=== PATIENT | female | born 1990 | race Caucasian/White ===

== ENCOUNTER 2017-09-22 15:00 | Emergency (ER) | payer OTHER ==
[2017-09-22 15:07] VITALS: BP 115/75
[2017-09-22] MEDS ORDERED: SODIUM CHLORIDE 0.9% 1,000 ML IV ONE (15:16)
[2017-09-22] MEDS ORDERED: METOCLOPRAMIDE 10 MG/2 ML VIAL IVP STA (15:16)
--- NOTE | 2017-09-22 15:17 | ED Physician Documentation ---
PD HPI ABD PAIN - Stated complaint Stated Complaint: VOMITTING/8 WKS - Chief complaint Chief Complaint: Abd Pain - History obtained from History obtained from: Patient - History of Present Illness Timing - onset: Other (27-year-old G1 at 8 weeks gestation and has been having trouble with vomiting for the last week or so, worse over the last day. There is no associated abdominal pain. She is constipated which has been resistant to milk of magnesia and stool softeners. She has also been taking Zofran which was working but is now no longer effective. Denies cramping or bleeding.) Review of Systems Constitutional: denies: Fever, Chills GI: reports: Nausea, Vomiting, Constipation. denies: Abdominal Pain, Diarrhea : denies: Dysuria, Frequency PD PAST MEDICAL HISTORY - Present Medications Home Medications: Ambulatory Orders Medication Instructions Recorded Confirmed Magnesium Citrate 296 ml PO ONCE #1 bot 09/22/17 Metoclopramide [Reglan] 10 mg PO Q6H PRN #20 tablet 09/22/17 Ondansetron Odt [Zofran] 4 mg TL Q6H PRN 09/22/17 09/22/17 Pnv No.122/Iron/Folic Acid 1 tab PO DAILY 09/22/17 09/22/17 [ Multi Tablet] Polyethylene Glycol 3350 [Miralax] 17 gm PO DAILY PRN #1 bottle 09/22/17 - Allergies Allergies/Adverse Reactions: Allergies Allergy/AdvReac Type Severity Reaction Status Date / Time Penicillins Allergy Unknown Verified 09/22/17 15:08 PD ED PE NORMAL - Vitals Vital signs reviewed: Yes - General General: Alert and oriented X 3, No acute distress - Cardiac Cardiac: RRR, No murmur - Respiratory Respiratory: No respiratory distress, Clear bilaterally - Abdomen Abdomen: Soft, Non tender - Female Female : Other (Bedside ultrasound demonstrates single live intrauterine with a heart rate of 146) - Neuro Neuro: Alert and oriented X 3, Normal speech - Psych Psych: Normal mood, Normal affect Results - Vitals Vitals: Vital Signs - 24 hr 09/22/17 15:04 Temperature 36.0 C L Heart Rate 84 Respiratory 16 Rate Blood Pressure 115/75 O2 Saturation 100 - Labs Labs: Laboratory Tests 09/22/17 15:36 Sodium 135 Potassium 3.8 Chloride 100 L Carbon Dioxide 24 Anion Gap 11.0 BUN 10 Creatinine 0.8 Estimated GFR (MDRD) 85 L Glucose 97 Calcium 9.3 Total Bilirubin 0.6 AST 15 ALT 12 Alkaline Phosphatase 44 Total Protein 7.7 Albumin 4.1 Globulin 3.6 Albumin/Globulin Ratio 1.1 Lipase 36 PD MEDICAL DECISION MAKING - ED course ED course: 27-year-old woman G1 presents with hyperemesis gravidarum that has been resistant to Zofran. After the administration of IV fluids and Reglan she felt much better and passed an oral challenge. The patient and family were counseled as to the diagnosis and need for follow- up. I counseled the patient with regard to signs and symptoms that would necessitate an urgent reevaluation in the emergency department. They understand they are welcome to return at any time if worse or if not improving as expected. This document was made in part using voice recognition software. While efforts are made to proofread this documents, sound alike and grammatical errors may occur. Departure - Departure Disposition: 01 Home, Self Care Clinical Impression: Hyperemesis gravidarum Condition: Good Record reviewed to determine appropriate education?: Yes Instructions: ED Preg Morning Sickness Prescriptions: Magnesium Citrate 296 ml PO ONCE #1 bot Metoclopramide [Reglan] 10 mg PO Q6H PRN #20 tablet PRN Reason: Nausea / Vomiting Polyethylene Glycol 3350 [Miralax] 17 gm PO DAILY PRN #1 bottle PRN Reason: Constipation Comments: Call your doctor to arrange a follow-up appointment, make the next available appointment. In the interim, return anytime if worse or if new symptoms develop.
[2017-09-22] MEDS ORDERED: METOCLOPRAMIDE 10 MG/2 ML VIAL ONE (15:54)
[2017-09-22 15:57] LABS: ALBUMIN/GLOBULIN RATIO 1.1 (1.0-2.2); BILIRUBIN,TOTAL 0.6 mg/dL (0.2-1.0); CALCIUM 9.3 mg/dL (8.5-10.3); CREATININE 0.8 mg/dL (0.4-1.0); POTASSIUM 3.8 mmol/L (3.5-5.0); TOTAL PROTEIN 7.7 g/dL (6.7-8.2)
== END 2017-09-22 16:49 | disposition home or self-care (01) ==
LOC: ED 15:00
DX: O21.0 Mild hyperemesis gravidarum (principal); Z3A.08 8 weeks gestation of pregnancy
CPT/HCPCS: 36415; 80053; 83690; 96374; 99283; 99284

== ENCOUNTER 2017-10-05 16:17 | Outpatient (CLI) | payer OTHER | END 2017-10-05 16:18 | disposition home or self-care (01) | LOC: LAB 16:17 | PROVIDERS: ATTEND Registered Nurse | DX: Z36.9 Encounter for antenatal screening, unspecified (principal) | CPT/HCPCS: 36415; 81001; 81599; 85025; 86762; 86850; 86900; 86901; 87340; 87389 ==

== ENCOUNTER 2017-10-06 08:00 | Outpatient (CLI) | payer OTHER | END 2017-10-06 08:01 | disposition home or self-care (01) | LOC: LAB.R 08:00 | PROVIDERS: ATTEND Registered Nurse | DX: Z36.9 Encounter for antenatal screening, unspecified (principal) | CPT/HCPCS: 87491; 87591 ==

== ENCOUNTER 2017-10-16 14:25 | Outpatient (CLI) | payer OTHER ==
[2017-10-16 15:42] LABS: BASOPHILS # (AUTO) 0.1 10^3/uL (0.0-0.1); BASOPHILS % (AUTO) 0.9 %; EOSINOPHILS # (AUTO) 0.1 10^3/uL (0.0-0.7); EOSINOPHILS % (AUTO) 0.7 %; HGB - HEMOGLOBIN 12.5 g/dL (12.0-16.0); MEAN CORPUSCULAR HEMOGLOBIN 31.4 pg (27.0-31.0); MEAN CORPUSCULAR HGB CONC 35.1 g/dL (32.0-36.0); MEAN CORPUSCULAR VOLUME 89.3 fL (81.0-99.0); MEAN PLATELET VOLUME 8.6 fL (7.9-10.8); MONOCYTES # (AUTO) 0.7 10^3/uL (0.0-1.0); MONOCYTES % (AUTO) 8.3 %; NEUTROPHILS # (AUTO) 4.9 10^3/uL (1.5-6.6); NEUTROPHILS % (AUTO) 56.1 %; PLT - PLATELET COUNT 254 10^3/uL (130-450); RED BLOOD COUNT 3.99 10^6/uL (4.20-5.40); RED CELL DISTRIBUTION WIDTH 13.1 % (12.0-15.0); WHITE BLOOD COUNT 8.7 x10^3/uL (4.8-10.8)
[2017-10-16 15:50] LABS: BILIRUBIN,URINE NEGATIVE (NEGATIVE); GLUCOSE, URINE (UA) NEGATIVE (NEGATIVE); KETONES,URINE (UA) NEGATIVE (NEGATIVE); LEUKOCYTE ESTERASE, URINE NEGATIVE (NEGATIVE); NITRITE,URINE NEGATIVE (NEGATIVE); OCCULT BLOOD,URINE NEGATIVE (NEGATIVE); PROTEIN,URINE NEGATIVE (NEGATIVE); UROBILINOGEN,URINE 0.2 (NORMAL) E.U./dL (NORMAL)
[2017-10-16 16:14] LABS: CLARITY,URINE CLEAR (CLEAR)
[2017-10-16 17:00] LABS: BACTERIA,URINE None Seen /HPF (None Seen); RBC,URINE 0-5 /HPF (0-5); SQUAMOUS EPITHELIAL CELL,UR MOD Squamous (<= Few)
[2017-10-17 11:51] LABS: HIV AG/AB 4TH GEN NON-REACTIVE (NON-REACTIVE)
[2017-10-17 13:22] LABS: HEPATITIS B SURFACE ANTIGEN NON-REACTIVE (NON-REACTIVE)
== END 2017-10-16 14:26 | disposition home or self-care (01) ==
LOC: LAB 14:25
PROVIDERS: ATTEND Registered Nurse
DX: Z36.9 Encounter for antenatal screening, unspecified (principal)
CPT/HCPCS: 36415; 81001; 81599; 85025; 86592; 86762; 86850; 86900; 86901; 87340; 87389

== ENCOUNTER 2018-01-01 12:40 | Outpatient (CLI) | payer OTHER ==
--- NOTE | 2018-01-01 16:32 | Ultrasound Report ---
OB ULTRASOUND: 01/01/2018 CLINICAL INDICATION: anatomy. TECHNIQUE: Real-time scanning was performed with international representative static images obtained. LAST MENSTRUAL PERIOD 08/03/2017 Clinical Age 21 weeks 4 days US Age 22 weeks 1 day EFW Hadlock 500 grams EFW% Hadlock 83% Heart Rate 150 EDC 05/10/2018 US EDC 05/06/2018 BPD Hadlock 21 weeks 6 days; Mean mm 52 HC Hadlock 21 weeks 6 days; Mean mm 197 AC Hadlock 22 weeks 6 days; Mean mm 180 FL Hadlock 22 weeks 0 days; Mean mm 37 Presentation breech Placental Location posterior R wrap Cervical Length -- Amniotic Fluid 14.9 cm; subjectively normal; MVP 5.1 cm FINDINGS There is a single viable intrauterine gestation, in breech presentation. heart rate is 150 BPM. The placenta is posterior to right wrap, without evidence of previa. Amniotic fluid volume is subjectively normal, with a deepest pocket of 5.1 cm. By size, the fetus measures 22 weeks 1 day (21 weeks 4 days by LMP). The following anatomic structures were visualized and appear normal: The intracranial contents, including the ventricles and posterior fossa; the lips and orbits; the spine; the heart, including 4 chamber view and outflow tracts, and diaphragm; the abdominal contents, including the stomach, the bilateral kidneys, and urinary bladder, as well as a normal 3 vessel cord insertion; 4 limbs. No free fluid or adnexal lesion is appreciated. IMPRESSION: SINGLE VIABLE INTRAUTERINE GESTATION, WITH SIZE IN KEEPING WITH LMP DATING. NORMAL ANATOMIC SURVEY. TD: 01/01/2018 16:14 [facility]
== END 2018-01-01 12:41 | disposition home or self-care (01) ==
LOC: DI 12:40
PROVIDERS: ATTEND Registered Nurse
DX: Z36.9 Encounter for antenatal screening, unspecified (principal)
CPT/HCPCS: 76811

== ENCOUNTER 2018-01-29 10:14 | Outpatient (CLI) | payer OTHER ==
[2018-01-29 11:51] LABS: HGB - HEMOGLOBIN 11.9 g/dL (12.0-16.0); MEAN CORPUSCULAR HEMOGLOBIN 31.3 pg (27.0-31.0); MEAN CORPUSCULAR HGB CONC 34.5 g/dL (32.0-36.0); MEAN CORPUSCULAR VOLUME 90.7 fL (81.0-99.0); MEAN PLATELET VOLUME 8.6 fL (7.9-10.8); RED BLOOD COUNT 3.8 10^6/uL (4.20-5.40); RED CELL DISTRIBUTION WIDTH 13.7 % (12.0-15.0); WHITE BLOOD COUNT 10.5 x10^3/uL (4.8-10.8)
== END 2018-01-29 10:15 | disposition home or self-care (01) ==
LOC: LAB 10:14
PROVIDERS: ATTEND Registered Nurse
DX: Z34.82 Encounter for supervision of other normal pregnancy, second trimester (principal)
CPT/HCPCS: 36415; 82950; 86850

== ENCOUNTER 2018-03-26 09:38 | Outpatient (CLI) | payer OTHER ==
--- NOTE | 2018-03-30 15:04 | Ultrasound Report ---
OB FOLLOWUP: 03/26/2018 CLINICAL INDICATION: Size date discrepancy. COMPARISON: 01/01/2018 TECHNIQUE: Real-time scanning was performed with career representative static images obtained. LAST MENSTRUAL PERIOD: 08/03/2017 Clinical Age: 33 weeks 4 days US Age: 36 weeks 2 days EFW Hadlock: 2824 grams EFW% Hadlock: 96% Heart Rate: 137 bpm EDC: 05/10/2018 US EDC: 04/21/2018 BPD Hadlock: 36 weeks 4 days; Mean mm 90 HC Hadlock: 37 weeks 2 days; Mean mm 328 AC Hadlock: 35 weeks 5 days; Mean mm 318 FL Hadlock: 35 weeks 5 days; Mean mm 69.7 Presentation: cephalic Placental Location: posterior w/ fundal wrap to anterior Cervical Length: 3.7 cm Amniotic Fluid: FARHAT 20. cm; MVP 7.0 cm FINDINGS There is a single viable intrauterine gestation, in cephalic presentation. heart rate is 137 BPM. The placenta is fundal, without evidence of previa. Amniotic fluid volume is normal, with an FARHAT of 20.6. By size, the fetus measures 36 weeks 2 days (33 weeks 4 days by LMP dating). Estimated weight by Hadlock method is 2824 grams, 96th percentile. No free fluid or adnexal lesion is appreciated. IMPRESSION: SINGLE VIABLE INTRAUTERINE GESTATION, MEASURING 2 WEEKS 5 DAYS LARGER THAN EXPECTED BY LMP DATING. ESTIMATED WEIGHT BY HADLOCK METHOD IS 2824 GRAMS, 96TH PERCENTILE FOR LMP DATING. Results called to Gloria Tillman CNM, on 03/26/2018 at 12 noon. TD: 03/26/2018 12:08 CHIKI
== END 2018-03-26 09:39 | disposition home or self-care (01) ==
LOC: DI 09:38
PROVIDERS: ATTEND Registered Nurse
DX: O26.843 Uterine size-date discrepancy, third trimester (principal); Z3A.33 33 weeks gestation of pregnancy
CPT/HCPCS: 76816

== ENCOUNTER 2018-04-07 21:05 | Outpatient (CLI) | payer OTHER ==
--- NOTE | 2018-04-08 00:03 | Ultrasound Preliminary Report ---
Exam: US OB F/U OR REPEAT IMPRESSION: 1. Su live intrauterine in cephalic presentation. 2. Established EGA 35 weeks 2 days with ROSALIND 05/10/2018 based on source of assigned dating. EGA 36 wee ks 2 days with ROSALIND 05/03/2018 based on the current ultrasound. Growth appears within normal limits wit h the composite gestational age measured on today's ultrasound only 1 week greater than established E GA. See above. 3. Amniotic fluid: FARHAT measures 25.2 cm, greater than the 95th percentile as seen with polyhydramnios . MVP 8 cm. 4. Estimated Weight: 2923 gm, computer results show this to be at the 25.2 percentile, but I qu estion this since the composite gestational age is greater than the estimated gestational age based o n established dates. Recommend follow-up of this on the ultrasound machine in the morning. 5. This exam was performed after-hours and no radiologist was present. The measurements are discordan t with the measurements that were obtained on the most recent ultrasound. Recommend a repeat OB follo w-up ultrasound when the radiologist is present tomorrow to repeat the measurements. 6. This was requested to be a call report, however the phone number given is a non-functioning number , and we were unable to reach the clinical service at the time of dictation. HOSSEIN The call report notification system was initiated by Dr. Fanny Cotton at 23:50 hrs on 04/07/18. SITE ID: [id number]
--- NOTE | 2018-04-08 00:09 | Ultrasound Report ---
EXAM: OBSTETRICAL ULTRASOUND FOLLOW-UP EXAM DATE: 04/07/2018 09:21 PM. CLINICAL HISTORY: Encounter for screening for macrosomia. COMPARISON: OB ultrasound 03/26/2018. TECHNIQUE: Real-time sonographic evaluation of the fetus performed by the hearing care professional. Multiple repre sentative static images were saved for review. DATING: Established EGA 35 weeks 2 days with ROSALIND 05/10/2018 based on source of assigned dating. EGA 38 weeks 0 days with ROSALIND 04/21/2018 based on prior ultrasound from 03/26/2018. EGA 36 weeks 2 days with ROSALIND 05/03/2018 based on the current ultrasound. GENERAL EVALUATION Su . Cardiac activity: 118 bpm. movement: Visualized. Presentation: Cephalic. Placenta: Posterior position. . Amniotic fluid: FARHAT measures 25.2 cm, greater than the 95th percentile as seen with polyhydramnios. M SPORTS ADMINISTRATOR 8 cm. BIOMETRY Bi-Parietal Diameter (BPD): 9 cm, 36 weeks 4 days Head Circumference (HC): 32.2 cm, 36 weeks 2 days Abdominal Circumference (AC): 32.7 cm, 36 weeks 4 days Femur Length (FL): 7 cm, 35 weeks 5 days Estimated Weight: 2923 gm, computer results show this to be at the 25.2 percentile, but I quest ion this since the composite gestational age is greater than the estimated gestational age based on e stablished dates. Recommend follow-up of this on the ultrasound machine in the morning. IMPRESSION: 1. Su live intrauterine in cephalic presentation. 2. Established EGA 35 weeks 2 days with ROSALIND 05/10/2018 based on source of assigned dating. EGA 36 wee ks 2 days with ROSALIND 05/03/2018 based on the current ultrasound. Growth appears within normal limits wit h the composite gestational age measured on today's ultrasound only 1 week greater than established E GA. See above. 3. Amniotic fluid: FARHAT measures 25.2 cm, greater than the 95th percentile as seen with polyhydramnios . MVP 8 cm. 4. Estimated Weight: 2923 gm, computer results show this to be at the 25.2 percentile, but I qu estion this since the composite gestational age is greater than the estimated gestational age based o n established dates. Recommend follow-up of this on the ultrasound machine in the morning. 5. This exam was performed after-hours and no radiologist was present. The measurements are discordan t with the measurements that were obtained on the most recent ultrasound. Recommend a repeat OB follo w-up ultrasound when the radiologist is present tomorrow to repeat the measurements. 6. This was requested to be a call report, however the phone number given is a non-functioning number , and we were unable to reach the clinical service at the time of dictation. HOSSEIN The call report notification system was initiated by Dr. Fanny Cotton at 23:50 hrs on 04/07/18. Referring Provider Line: [phone] SITE ID: [id number]
== END 2018-04-07 21:06 | disposition home or self-care (01) ==
LOC: DI 21:05
PROVIDERS: ATTEND Registered Nurse
DX: Z36.88 Encounter for antenatal screening for fetal macrosomia (principal)
CPT/HCPCS: 76816

== ENCOUNTER 2018-04-13 10:22 | Outpatient (CLI) | payer OTHER ==
--- NOTE | 2018-04-13 12:19 | Ultrasound Report ---
Procedure Date: 04/13/2018 Accession Number: [id number] / [id number] Procedure: US - OB F/U or Repeat CPT Code: FULL RESULT: EXAM: OB F/U or Repeat DATE: 04/13/2018 11:13 AM CLINICAL INDICATION: macrosomia COMPARISON: 04/07/2018, 03/26/2018, 01/01/2018 TECHNIQUE: Real-time scanning was performed with national sales representative static images obtained. LAST MENSTRUAL PERIOD: 08/03/2017 Clinical Age: 36 weeks 1 days US Age: 38 weeks 1 days EFW Hadlock: 3453 grams EFW % Hadlock: 89% Heart Rate: 144 bpm EDC: 05/10/2018 US EDC: 04/26/2018 BPD Hadlock: 37 weeks 0 days; Mean mm 91 HC Hadlock: 39 weeks 2 days; Mean mm 342 AC Hadlock: 38 weeks 3 days; Mean mm 346 FL Hadlock: 38 weeks 0 days; Mean mm 74 Presentation: Cephalic Placental Location: Posterior Cervical Length: 3.8 cm Amniotic Fluid: FARHAT 16.1 cm; MVP 6.9 cm FINDINGS: There is a single viable intrauterine gestation, in cephalic presentation. heart rate is 144 BPM. The placenta is posterior, without evidence of previa. Amniotic fluid volume is normal, with an FARHAT of 16.1. By size, the fetus measures 38 weeks 1 day, 3453 g by Hadlock method (89th percentile). IMPRESSION: Single viable intrauterine gestation, measuring 2 weeks ahead by size. Results called to Rudolph Tillman CNM, on 04/13/2018.
== END 2018-04-13 10:23 | disposition home or self-care (01) ==
LOC: DI 10:22
PROVIDERS: ATTEND Registered Nurse
DX: Z36.88 Encounter for antenatal screening for fetal macrosomia (principal); Z34.83 Encounter for supervision of other normal pregnancy, third trimester
CPT/HCPCS: 76816; 87081

== ENCOUNTER 2018-04-13 14:42 | Outpatient (CLI) | payer OTHER | END 2018-04-13 14:43 | disposition home or self-care (01) | LOC: LAB.R 14:42 | PROVIDERS: ATTEND Registered Nurse | DX: Z34.83 Encounter for supervision of other normal pregnancy, third trimester (principal) | CPT/HCPCS: 87081 ==

== ENCOUNTER 2018-04-21 16:01 | Outpatient (CLI) | payer OTHER ==
[2018-04-21 16:25] LABS: BASOPHILS % (AUTO) 0.4 %; EOSINOPHILS % (AUTO) 0.4 %; HGB - HEMOGLOBIN 11.1 g/dL (12.0-16.0); LYMPHOCYTES # (AUTO) 1.8 10^3/uL (1.5-3.5); LYMPHOCYTES % (AUTO) 22.7 %; MEAN CORPUSCULAR HEMOGLOBIN 30.4 pg (27.0-31.0); MEAN CORPUSCULAR HGB CONC 34.2 g/dL (32.0-36.0); MEAN PLATELET VOLUME 9.5 fL (7.9-10.8); MONOCYTES # (AUTO) 0.6 10^3/uL (0.0-1.0); MONOCYTES % (AUTO) 7.5 %; NEUTROPHILS # (AUTO) 5.5 10^3/uL (1.5-6.6); PLT - PLATELET COUNT 201 10^3/uL (130-450); RED BLOOD COUNT 3.66 10^6/uL (4.20-5.40); RED CELL DISTRIBUTION WIDTH 13.3 % (12.0-15.0)
[2018-04-21 16:35] LABS: GLUCOSE, URINE (UA) NEGATIVE (NEGATIVE); KETONES,URINE (UA) TRACE mg/dL (NEGATIVE); LEUKOCYTE ESTERASE, URINE NEGATIVE (NEGATIVE); NITRITE,URINE NEGATIVE (NEGATIVE); OCCULT BLOOD,URINE NEGATIVE (NEGATIVE); PROTEIN,URINE TRACE mg/dL (NEGATIVE); UROBILINOGEN,URINE 0.2 (NORMAL) E.U./dL (NORMAL)
[2018-04-21 16:38] LABS: CREATININE 0.7 mg/dL (0.4-1.0); URIC ACID 6.1 mg/dL (2.6-7.2)
[2018-04-21 16:42] LABS: BACTERIA,URINE Many /HPF (None Seen); BILIRUBIN,URINE NEGATIVE (NEGATIVE); CLARITY,URINE HAZY (CLEAR); ICTOTEST,URINE NEGATIVE; MUCUS,URINE Moderate Strands; RBC,URINE None Seen /HPF (0-5); SQUAMOUS EPITHELIAL CELL,UR MANY Squamous (<= Few)
[2018-04-21 16:48] LABS: HB2 TOTAL 11.6 g/dL; HEMOGLOBIN A1C 0.41 g/dL; HEMOGLOBIN A1C % 5.4 % (4.6-6.2)
== END 2018-04-21 16:02 | disposition home or self-care (01) ==
LOC: LAB 16:01
PROVIDERS: ATTEND Obstetrics & Gynecology
DX: R03.0 Elevated blood-pressure reading, without diagnosis of hypertension (principal)
CPT/HCPCS: 36415; 81001; 82565; 83036; 83615; 84450; 84550; 85025

== ENCOUNTER 2018-04-28 12:19 | Inpatient (IN) | payer OTHER ==
[2018-04-28 13:05] LABS: BASOPHILS % (AUTO) 0.4 %; EOSINOPHILS % (AUTO) 0.3 %; HGB - HEMOGLOBIN 11.5 g/dL (12.0-16.0); LYMPHOCYTES # (AUTO) 1.5 10^3/uL (1.5-3.5); LYMPHOCYTES % (AUTO) 14.9 %; MEAN CORPUSCULAR HEMOGLOBIN 30.1 pg (27.0-31.0); MEAN CORPUSCULAR HGB CONC 33.6 g/dL (32.0-36.0); MEAN CORPUSCULAR VOLUME 89.4 fL (81.0-99.0); MEAN PLATELET VOLUME 10.1 fL (7.9-10.8); MONOCYTES # (AUTO) 0.8 10^3/uL (0.0-1.0); MONOCYTES % (AUTO) 7.5 %; NEUTROPHILS # (AUTO) 7.8 10^3/uL (1.5-6.6); NEUTROPHILS % (AUTO) 76.9 %; PLT - PLATELET COUNT 213 10^3/uL (130-450); RED BLOOD COUNT 3.84 10^6/uL (4.20-5.40); RED CELL DISTRIBUTION WIDTH 13.6 % (12.0-15.0); WHITE BLOOD COUNT 10.2 x10^3/uL (4.8-10.8)
[2018-04-28 13:12] LABS: URIC ACID 6.6 mg/dL (2.6-7.2)
[2018-04-28 13:16] LABS: PROTEIN/CREATININE RATIO,URINE 0.1 (<=0.2)
[2018-04-28] MEDS: LACTATED RINGERS 1,000 ML IV SCH ×2 (14:38→23:41)
[2018-04-28] MEDS ORDERED: CITRIC ACID/SODIUM CITRATE 15 ML UDC PO ONE ×2 (14:42→14:46)
[2018-04-28] MEDS ORDERED: SODIUM CHLORIDE FLUSH 0.9% 10 ML SYRINGE IVP PRN (14:48)
[2018-04-28] MEDS ORDERED: ONDANSETRON 4 MG/2 ML VIAL IVP PRN (14:48)
[2018-04-28] MEDS ORDERED: LACTATED RINGERS 1,000 ML IV SCH (15:00)
[2018-04-28] MEDS ORDERED: CLINDAMYCIN 900 MG/50 ML 50 ML IV ONE (15:00)
--- NOTE | 2018-04-28 15:03 | OPERATIVE REPORT ---
Operative Report - General Admit Date: 04/28/18 Planned Procedure: Primary section Pre-Op Diagnosis: Gestational hypertension; 38-week 1 day gestation; macrosomic fetus Procedure Performed: Primary lower segment transverse section - Procedure Note Primary Surgeon: Martin Hallman MD Secondary Surgeon: Yuliet Avila, certified nurse record tester Anesthesia Technique: Spinal IV Fluids (mL): 1,000 Estimated Blood Loss (mL): 500 Urine Output (mL): 100 Drain/Tube Type: Other (Miles catheter) Complications: none - Other Other Information/Narrative: Living male ; weight XX; Apgars X/Y. Immediately post delivery we had a period of uterine atony that massage and Pitocin could not resolved. As a result one ampule of Hemabate was given. The Hemabate resolve the atony
[2018-04-28] MEDS ORDERED: LACTATED RINGERS 1,000 ML IV ONE ×2 (15:18→16:00)
[2018-04-28] MEDS ORDERED: CARBOPROST TROMETHAMINE 250 MCG/ML AMP IM ONE (16:40)
[2018-04-28] MEDS ORDERED: OXYTOCIN 10 UNIT/ML VIAL IV ONE (16:40)
[2018-04-28] MEDS ORDERED: MORPHINE PF 5 MG/10 ML AMP EP ONE (16:40)
--- NOTE | 2018-04-28 16:52 | HISTORY & PHYSICAL EXAMINATION ---
DATE OF SERVICE: 04/28/2018 Physician: Martin Hallman MD HISTORY OF PRESENT ILLNESS: The patient is a 28-year-old primigravida at 38 weeks and 1 day gestation who was noted to have elevated blood pressures in the office up to a peak of 150/110. She has a persistent headache, but has had migraine headaches in the past. She has no right upper quadrant tenderness or visual symptoms, but does note finger and pedal edema. Her fundal height is ahead of dates and recent ultrasound found the EFW at the 97th percentile and a normal FARHAT. Preeclampsia labs pending. The patient reports contractions beginning today, but they have since tapered off. She believes she lost her mucus plug, but no suspicion of ruptured membranes Todays office blood pressures were originally 148/94 with a repeat of 150/94 and a peak of 156/110. The patient had a prior counseling session with Dr. Pillai concerning macrosomia and she had elected for section next week. Basic labs: Blood type A positive, antibody screen negative, urine culture negative, RPR nonreactive, hepatitis B surface antigen negative. Glucose challenge test normal at 86. A 28-week hemoglobin 11.9. . PAST MEDICAL HISTORY: The patient denies cardiovascular disease, HTN or pulmonary disease. She did have skin cancer Excision. She has had difficulty with anxiety in the past as well as migrainous headaches. Migraines worsened with oral contraceptives, but have improved since . Skin cancer resection in 2013 and also patient has had problems with anemia in the past. PAST SURGICAL HISTORY: Resection of skin cancer. ALLERGIES: PENICILLIN CAUSES RASH AND BLISTERING. MEDICATIONS 1. vitamins. 2. Iron. FAMILY HISTORY: No genetically inheritable diseases noted or aneuploidy. Mother: Depression. Father: Hypertension. Stroke, multiple maternal relatives. SOCIAL HISTORY: , real estate inspector. No drug, tobacco or alcohol use. REVIEW OF SYSTEMS CONSTITUTIONAL: No recent fevers or illness. HEENT: Negative. LUNGS: Negative. CARDIAC: Negative. GASTROINTESTINAL: Negative. GENITOURINARY: Negative. BREASTS: Negative. MUSCULOSKELETAL: Positive edema. NEUROLOGIC: Grossly intact. Headache today PSYCHOLOGIC: Alert, appropriate, cooperative. PHYSICAL EXAMINATION VITAL SIGNS: Blood pressure 146/93. HEENT: Supple neck. Moist mucous membranes. No thyromegaly. LUNGS: Clear to all lobes. CARDIAC: Regular, no significant murmur or gallop. ABDOMEN: Nondistended. No organomegaly or upper quadrant tenderness. UTERUS: Estimate 9-pound fetus in a vertex presentation. No contractions felt. Normal resting tone. PELVIC: Deferred. EXTREMITIES: Finger edema, as well as pedal edema; moves all 4 extremities well. NEUROLOGIC: Grossly intact. Patellar reflex is brisk. PSYCHOLOGIC: In good mood, appears happy. ASSESSMENT: The patient is a 28-year-old primigravida at term, 38 weeks and 1 day by reliable dating criteria. She is noted to have significant hypertension and headaches with mild edema, but no right upper quadrant tenderness. She fits the criteria for gestational hypertension, w severe features. Current recommendations for a 38-week gestation with preeclampsia or gestational hypertension is delivery. The patient has a known large fetus (96th percentile) and desires delivery. delivery in addition to patient's preferences will expedite delivery and abort further progression of preeclampsia. PLAN: Patient has had only clear fluids at lunch. She is an appropriate candidate for section this afternoon. Dr. Beatty of anesthesia has already evaluated her and believes the same. Informed consent was given for a section including the mechanics, the possibility of blood loss, transfusion, and infection. Patient is allergic to penicillin and so we will use Cleocin for prophylaxis. Plan section at 1500 or 1530H. TD: 04/28/2018 14:54 CHIKI
[2018-04-28] MEDS ORDERED: ACETAMINOPHEN 1,000 MG/100 ML 100 ML IV ONE (17:19)
[2018-04-28] MEDS ORDERED: KETOROLAC 30 MG/ML VIAL ONE (17:30)
[2018-04-28] MEDS ORDERED: OXYTOCIN/SODIUM CHLORIDE 500 ML IV ONE (18:33)
[2018-04-28] MEDS: SODIUM CHLORIDE FLUSH 0.9% 10 ML SYRINGE IVP SCH (19:45)
[2018-04-28] MEDS ORDERED: SCOPOLAMINE PATCH TOP SCH (22:00)
[2018-04-28] MEDS: DOCUSATE SODIUM 100 MG CAPSULE PO SCH (22:06)
[2018-04-28] MEDS: ONDANSETRON 4 MG/2 ML VIAL IVP PRN (22:08)
--- NOTE | 2018-04-28 22:26 | OPERATIVE REPORT ---
DATE OF SERVICE: 04/28/2018 Physician: Martin Hallman MD PREOPERATIVE DIAGNOSIS: Gestational hypertension with severe features; 38-week 1-day gestation, macrosomic fetus. POST-DELIVERY DIAGNOSES 1. Gestational hypertension with severe features; 38-week 1-day gestation, macrosomic fetus. 2. Nuchal cord x2. 3. Uterine Atony PROCEDURE: Primary lower segment transverse section. SURGEON: Martin Hallman MD, FACOG, FICS NETWORK SUPPORT MANAGER: Yuliet Mcgee, certified nurse barrel builder. ANESTHESIA: Lobo Beatty MD MEN'S BASKETBALL COACH: Lluvia Ramos MD (Pediatrics) ANESTHESIA TYPE: Spinal. COMPLICATIONS: None. ESTIMATED BLOOD LOSS: 500. IV FLUIDS: 1000. URINE OUTPUT: 100 mL, clear. DRAINS: Miles catheter functioning. FINDINGS: Surgery start time 1553. At 1556, a living male was born weighing 8 lbs 10.1 oz and scoring Apgars of 9/9. There was no obvious trauma or congenital anomalies. Reference Dr. Ramos's notes. The uterus was normal without any myometrial findings or intracavitary defects. The tubes were open and fluffy. Both ovaries appeared to be normal. TECHNIQUE: Prior to the surgery, I had a conference with mother and father outlining the mechanics, the indications, and risks/benefits. Informed consent paperwork was signed. The patient was brought to the operating room, placed on the table in the sitting position. Spinal anesthetic was uneventfully instilled. The patient was moved to supine. She was prepped and draped in a customary sterile fashion. A timeout briefing was done per protocol. After ensuring anesthesia was good through level T10, surgery began. A Pfannenstiel incision was used to uneventfully open the abdominal wall. Bladder flap was developed with Metzenbaum scissors. A lower segment transverse hysterotomy was accomplished with a scalpel. On entry to the amniotic cavity, clear nonfoul fluid was noted. The wound was extended with gentle finger traction. Cleaner And Polisher secured the head with his right hand and guided it through the hysterotomy wound. Filter Worker provided fundal pressure to propel the fetus through the laparotomy wound uneventfully. Shoulders were delivered without difficulty. It was noted to be a large fetus. Cord was doubly clamped and transected. Cord blood was sent to pathology with a cord segment placed in reserve. Cord segment did not need to be sent. The uterus was exteriorized. Placenta was removed intact with gentle uterine massage. Hysterotomy wound was closed in 2 layers, first with an interlock stitch of #0 Vicryl. This was followed by an imbricating layer of #0 Vicryl sewn in a cardinal fashion. The abdominal cavity was doubly lavaged with warm normal saline and all operative sites were inspected. After ensuring there was no postoperative bleeding, the uterus was placed back into the uterine cavity. Pelvic peritoneum was closed with a running stitch of 2-0 Vicryl. Fascia was closed with a running stitch of 0 Vicryl. Subcutaneous tissue was reapproximated with multiple interrupted stitches of 2-0 chromic. Skin was closed with a running subcuticular stitch of 4-0 Monocryl. Additional subcuticular stitches of 4-0 Monocryl were placed to reinforce the wound. Wound VAC was uneventfully applied and observed to function normally. At the end of the case, all sponge, needle and instrument counts were confirmed as correct. DISPOSITION: The patient was taken to the labor and delivery suites for recovery. MEDICATIONS 1. Cleocin 900 mg IV piggyback prophylaxis. 2. Hemabate 15 mcg IM. TD: 04/28/2018 17:21 [facility]
[2018-04-29] MEDS: diphenhydrAMINE 25 MG CAPSULE PO PRN ×3 (00:16→22:50)
[2018-04-29] MEDS: ACETAMINOPHEN 500 MG TABLET PO SCH ×5 (04:06→23:20)
[2018-04-29] MEDS: oxyCODONE 5 MG TABLET PO PRN ×4 (04:06→22:08)
[2018-04-29] MEDS: IBUPROFEN 600 MG TABLET PO SCH ×5 (04:07→22:08)
[2018-04-29] MEDS: SODIUM CHLORIDE FLUSH 0.9% 10 ML SYRINGE IVP SCH ×3 (04:13→20:58)
[2018-04-29] MEDS: ONDANSETRON 4 MG/2 ML VIAL IVP PRN ×3 (05:48→14:57)
[2018-04-29 05:58] LABS: BASOPHILS % (AUTO) 0.1 %; LYMPHOCYTES % (AUTO) 7.1 %; MEAN CORPUSCULAR HEMOGLOBIN 29.8 pg (27.0-31.0); MEAN CORPUSCULAR HGB CONC 33.3 g/dL (32.0-36.0); MEAN CORPUSCULAR VOLUME 89.3 fL (81.0-99.0); MEAN PLATELET VOLUME 10.3 fL (7.9-10.8); MONOCYTES # (AUTO) 0.5 10^3/uL (0.0-1.0); MONOCYTES % (AUTO) 3.2 %; NEUTROPHILS # (AUTO) 12.8 10^3/uL (1.5-6.6); NEUTROPHILS % (AUTO) 89.6 %; PLT - PLATELET COUNT 184 10^3/uL (130-450); RED BLOOD COUNT 3.36 10^6/uL (4.20-5.40); RED CELL DISTRIBUTION WIDTH 13.2 % (12.0-15.0); WHITE BLOOD COUNT 14.3 x10^3/uL (4.8-10.8)
--- NOTE | 2018-04-29 09:01 | PROVIDER PROGRESS NOTE ---
Subjective - General Admit Date: 04/28/18 Procedure Date: 04/28/18 Post Op Days: 1 Procedure Performed: Primary lower segment transverse section - Review of Systems Wound/Incisions: positive: Other (Wound VAC in place and functional) Drain Type: Miles General: positive: No symptoms HEENT: positive: No symptoms Pulmonary: positive: No symptoms Cardiovascular: positive: No symptoms Gastrointestinal: positive: Nausea, Vomiting (Patient had multiple bouts of emesis last night that were triggered when she sat up. She did not have any headache associated with changing position. Since the scopolamine patch she has had much less nausea and vomiting) Genitourinary: positive: No symptoms Musculoskeletal: positive: No symptoms Skin: positive: No symptoms Psychiatric: positive: No symptoms Objective - Patient Data Vital Signs: Vital Signs x48h Temp Pulse Resp BP Pulse Ox 04/29/18 07:55 98.5 F 78 16 128/74 98 04/29/18 04:03 208.9 F H 80 16 126/75 04/29/18 02:00 207.7 F H 82 16 138/90 H Weight: Weight 04/27/18 04/28/18 04/29/18 23:59 23:59 23:59 Weight (kg) 119.295 kg Intake & Output: Intake and Output Totals x24h 04/27/18 04/28/18 04/29/18 23:59 23:59 23:59 Intake Total 1000 1000 Output Total 1525 550 Balance -525 450 - Lab Results Lab Results: 04/29/18 05:10 Other Lab Results: Lab Results x24hrs 04/29/18 04/28/18 04/28/18 Range/Units 05:10 12:50 12:50 WBC 14.3 H (4.8-10.8) x10^3/uL RBC 3.36 L (4.20-5.40) 10^6/uL Hgb 10.0 L (12.0-16.0) g/dL Hct 30.0 L (37.0-47.0) % MCV 89.3 (81.0-99.0) fL MCH 29.8 (27.0-31.0) pg MCHC 33.3 (32.0-36.0) g/dL RDW 13.2 (12.0-15.0) % Plt Count 184 (130-450) 10^3/uL MPV 10.3 (7.9-10.8) fL Neut # (Auto) 12.8 H (1.5-6.6) 10^3/uL Lymph # (Auto) 1.0 L (1.5-3.5) 10^3/uL Alger # (Auto) 0.5 (0.0-1.0) 10^3/uL Eos # (Auto) 0.0 (0.0-0.7) 10^3/uL Baso # (Auto) 0.0 (0.0-0.1) 10^3/uL Absolute Nucleated RBC 0.00 x10^3/uL Nucleated RBC % 0.0 /100WBC Uric Acid (2.6-7.2) mg/dL AST (10-42) IU/L Lactate Dehydrogenase (91-225) IU/L Urine Creatinine 94.0 mg/dL Ur Total Protein Timed 9 mg/dL Protein/Creatinin Ratio 0.1 (<=0.2) Blood Type A POSITIVE Antibody Screen NEGATIVE 04/28/18 04/28/18 04/28/18 Range/Units 12:50 12:50 12:50 WBC 10.2 (4.8-10.8) x10^3/uL RBC 3.84 L (4.20-5.40) 10^6/uL Hgb 11.5 L (12.0-16.0) g/dL Hct 34.3 L (37.0-47.0) % MCV 89.4 (81.0-99.0) fL MCH 30.1 (27.0-31.0) pg MCHC 33.6 (32.0-36.0) g/dL RDW 13.6 (12.0-15.0) % Plt Count 213 (130-450) 10^3/uL MPV 10.1 (7.9-10.8) fL Neut # (Auto) 7.8 H (1.5-6.6) 10^3/uL Lymph # (Auto) 1.5 (1.5-3.5) 10^3/uL Alger # (Auto) 0.8 (0.0-1.0) 10^3/uL Eos # (Auto) 0.0 (0.0-0.7) 10^3/uL Baso # (Auto) 0.0 (0.0-0.1) 10^3/uL Absolute Nucleated RBC 0.01 x10^3/uL Nucleated RBC % 0.1 /100WBC Uric Acid 6.6 (2.6-7.2) mg/dL AST 19 (10-42) IU/L Lactate Dehydrogenase 148 (91-225) IU/L Urine Creatinine mg/dL Ur Total Protein Timed mg/dL Protein/Creatinin Ratio (<=0.2) Blood Type Antibody Screen - Current Medications Current Medications: Current Medications Generic Name Dose Route Start Last Admin Trade Name Freq PRN Reason Stop Dose Admin Acetaminophen 1,000 mg 04/28/18 15:00 04/29/18 04:07 Tylenol PO Not Given Q8H RODNEY Diphenhydramine HCl 25 mg 04/28/18 14:48 04/29/18 00:16 Benadryl PO 25 mg Q6H PRN Administration ITCHING Docusate Sodium 100 mg 04/28/18 21:00 04/28/18 22:06 Colace 100mg Capsule PO Not Given BID RODNEY Lactated Ringer's 1,000 mls @ 150 mls/hr 04/28/18 14:00 04/29/18 04:13 Lr IV Infused .Q6H40M RODNEY Infusion Ibuprofen 600 mg 04/28/18 15:00 04/29/18 04:13 Motrin PO Not Given Q6H RODNEY Ondansetron HCl 4 mg 04/28/18 14:48 04/28/18 19:43 Zofran Inj IVP 4 mg Q4H PRN Administration Nausea / Vomiting Ondansetron HCl 8 mg 04/28/18 21:49 04/29/18 05:48 Zofran Inj IVP 8 mg Q4HR PRN Administration Nausea / Vomiting Oxycodone HCl 5 mg 04/28/18 14:48 04/29/18 04:06 Roxicodone PO 5 mg Q4HR PRN Administration PAIN Scopolamine HBr 1 patch 04/28/18 22:00 04/28/18 22:23 Transderm-Scop TOP 1 patch Q3D RODNEY Administration Sodium Chloride 10 ml 04/28/18 17:00 04/29/18 04:13 Normal Saline Flush 0.9% IVP Not Given 0100,0900,1700 [facility] Physical Exam - Physical Exam General: positive: No acute distress, Alert HEENT: positive: Moist mucous membranes Neck: positive: Supple w/out meningeal sx Cardiac: positive: Regular Rate, Regular Rhythm, Murmur Present (Innocent murmur of ) Resipratory: positive: Clear to ausultation nolan Abdomen: positive: Normal Bowel sounds Female : positive: Enlarged uterus (Uterus enlarged 17 week size nontender firm) Extremities: positive: Normal ROM, Non tender, Other (Mild pedal edema unchanged from yesterday; ring finger edema persists) Neurologic: positive: Alert and Oriented X 3, Normal Sensation, Normal Speech Assess/Plan - Additional Planning My Orders: My Active Orders 04/28/18 14:48 Activity - [RC] QSHIFT IO [RC] Q1HX12,Q4HR Initiate Line Care Protocol [RC] .protocol Notify Provider - Specific Ins [RC] PRN Notify Provider - VS Parameter [RC] .notify Checks - OB [RC] Q15MX8,Q1HRX2,Q4HRX6,QSHIFT Vital Signs - OB [RC] Q15MX8,Q1HRX2,Q4HRX6,QSHIFT Ondansetron Inj [Zofran Inj] 4 mg IVP Q4H PRN Sodium Chloride Flush 0.9% [Normal Saline Flush 0.9%] 10 ml IVP PRN PRN diphenhydrAMINE [Benadryl] 25 mg PO Q6H PRN oxyCODONE [Roxicodone] 5 mg PO Q4HR PRN Condition of Patient [OTHERS] Routine DVT Prophylaxis [OTHERS] Routine 04/28/18 14:49 Incentive Spirometry - RT [RC] 5XD 5XD SCDs [RC] QSHIFT Code Status [OTHERS] Routine 04/28/18 15:00 Acetaminophen [Tylenol] 1,000 mg PO Q8H Ibuprofen [Motrin] 600 mg PO Q6H 04/28/18 17:00 Sodium Chloride Flush 0.9% [Normal Saline Flush 0.9%] 10 ml IVP 0100,0900, 1700 04/28/18 21:00 Docusate Sodium 100Mg Capsule [Colace 100Mg Capsule] 100 mg PO BID 04/28/18 21:49 Ondansetron Inj [Zofran Inj] 8 mg IVP Q4HR PRN 04/28/18 22:00 Scopolamine Patch [Transderm-Scop] 1 patch TOP Q3D 04/29/18 02:48 Miles Discontinuation [RC] ONCE Assessment/Plan - Assessment/Plan Assessment: Patient recovering well from section. Her blood pressures have normalized since delivery. She has no symptoms of headache, epigastric tenderness, or visual symptoms changes. Labetalol and mag sulfate not required Plan: Continue supportive care. Discontinue Miles. Encourage patient to ambulate
[2018-04-29] MEDS: LACTATED RINGERS 1,000 ML IV SCH ×3 (09:20→20:57)
[2018-04-29] MEDS: DOCUSATE SODIUM 100 MG CAPSULE PO SCH ×2 (10:45→22:08)
[2018-04-30] MEDS: ACETAMINOPHEN 500 MG TABLET PO SCH ×2 (04:12→15:20)
[2018-04-30] MEDS: oxyCODONE 5 MG TABLET PO PRN ×3 (04:12→15:21)
--- NOTE | 2018-04-30 07:16 | Discharge Plan ---
Discharge Plan Disposition: 01 Home, Self Care Condition: Good Diet: Regular Activity Restrictions: Activity as Tolerated Shower Restrictions: No Driving Restrictions: No Additional Instructions or Follow Up instructions: Patient to schedule wound VAC removal either on Thursday or . No Smoking: If you smoke, Please STOP! Call for help. Follow-up with: Martin Hallman MD [Provider Admit Priv/Credential] -
--- NOTE | 2018-04-30 07:30 | PROVIDER PROGRESS NOTE ---
Subjective - General Admit Date: 04/28/18 Procedure Date: 04/28/18 Post Op Days: 2 Procedure Performed: Primary lower segment transverse section - Review of Systems Wound/Incisions: positive: Healing well, Other (Wound VAC in place and functional) Drain Type: Miles General: positive: No symptoms HEENT: positive: No symptoms Pulmonary: positive: No symptoms Cardiovascular: positive: No symptoms Gastrointestinal: positive: Nausea, Vomiting (Patient had multiple bouts of emesis last night that were triggered when she sat up. She did not have any headache associated with changing position. Since the scopolamine patch she has had much less nausea and vomiting) Genitourinary: positive: No symptoms Musculoskeletal: positive: No symptoms Skin: positive: No symptoms Neurological: Psychiatric: positive: No symptoms Objective - Patient Data Weight: Weight 04/28/18 04/29/18 04/30/18 23:59 23:59 23:59 Weight (kg) 119.295 kg Intake & Output: Intake and Output Totals x24h 04/28/18 04/29/18 04/30/18 23:59 23:59 23:59 Intake Total 1000 1730 Output Total 1525 2350 Balance -525 -620 - Lab Results Lab Results: 04/29/18 05:10 - Current Medications Current Medications: Current Medications Generic Name Dose Route Start Last Admin Trade Name Freq PRN Reason Stop Dose Admin Acetaminophen 1,000 mg 04/28/18 15:00 04/30/18 04:12 Tylenol PO 1,000 mg Q8H RODNEY Administration Diphenhydramine HCl 25 mg 04/28/18 14:48 04/29/18 22:50 Benadryl PO 25 mg Q6H PRN Administration ITCHING Docusate Sodium 100 mg 04/28/18 21:00 04/29/18 22:08 Colace 100mg Capsule PO 100 mg BID RODNEY Administration Lactated Ringer's 1,000 mls @ 150 mls/hr 04/28/18 14:00 04/29/18 20:57 Lr IV Not Given .Q6H40M RODNEY Ibuprofen 600 mg 04/28/18 15:00 04/29/18 22:08 Motrin PO 600 mg Q6H RODNEY Administration Ondansetron HCl 4 mg 04/28/18 14:48 04/28/18 19:43 Zofran Inj IVP 4 mg Q4H PRN Administration Nausea / Vomiting Ondansetron HCl 8 mg 04/28/18 21:49 04/29/18 14:57 Zofran Inj IVP 8 mg Q4HR PRN Administration Nausea / Vomiting Oxycodone HCl 5 mg 04/28/18 14:48 04/30/18 04:12 Roxicodone PO 5 mg Q4HR PRN Administration PAIN Scopolamine HBr 1 patch 04/28/18 22:00 04/28/18 22:23 Transderm-Scop TOP 1 patch Q3D RODNEY Administration Sodium Chloride 10 ml 04/28/18 17:00 04/29/18 20:58 Normal Saline Flush 0.9% IVP Not Given 0100,0900,1700 [facility] Physical Exam - Physical Exam General: positive: No acute distress HEENT: positive: Moist mucous membranes Neck: positive: Supple w/out meningeal sx Abdomen: positive: Normal Bowel sounds, Other (Nontender) Female : positive: Enlarged uterus (16-7 week size nontender firm), Other ( Minimal non-foul lochia reported) Skin: positive: Warm and dry Neurologic: positive: Alert and Oriented X 3, Normal Sensation, Normal Speech Assessment/Plan - Assessment/Plan Assessment: Patient recovering well from section and desires discharge later today. Plan: Plan dictation at 1700 today. Discharge summary completed along with prescriptions
--- NOTE | 2018-04-30 07:56 | DISCHARGE SUMMARY ---
Physician: Martin Hallman MD DATE OF ADMISSION: 04/28/2018 DATE OF DISCHARGE: 04/29/2018 DIAGNOSES 1. A 38-week 1-day gestation. 2. Gestational hypertension. 3. Macrosomic fetus on recent ultrasound (97th percentile). 4. Prior planned primary section for macrosomic fetus on recent ultrasound. PROCEDURE PERFORMED: Primary lower transverse section. COMPLICATIONS: None. HISTORY: Esther Rai is a 28-year-old primigravida at 38 weeks 1 day gestation who was noted to have elevated blood pressures in the office today with a peak of 150/110. She has persistent headache, but also carries history of migrainous headaches. She was admitted for workup. Reference typewritten H and P. Current recommendations for a 38-week gestation with preeclampsia or gestational hypertension is delivery. The patient was known to have large fetus and desires section. Counseling and preoperative informed consent session was accomplished. HOSPITAL COURSE: The patient was admitted in preparation for section. Preeclampsia labs were reassuring with a uric acid of 6.6 and AST of 19, platelets 213, LDH 148, and protein creatinine ratio of 0.1. The patient underwent an uneventful lower transverse section under spinal anesthetic. At 1556 a living male was born weighing 8 pounds 10.1 ounces, scoring Apgars of 9 and 9. Total blood loss was 500. There was a nuchal cord x2, but this was not a factor. Patient had a period of atony that was successfully managed with Hemabate. The patient went to the recovery room in stable condition. Postoperatively, the patient did well, rapidly recovering to full diet and activity. She did have difficulty with nausea and vomiting in the director of early childhood education of postop day one , but this was successfully managed with scopolamine patch and Zofran 8 mg q.4 h. IV push. Magnesium sulfate and labetalol were not required. Admission hemoglobin was 11.5 and postop hemoglobin was 10.0. The patient demonstrated good breast feeding skills and defecated and micturated without difficulty. By postoperative day two, the patient desired discharge later in the day. She had demonstrated self-care and infant care skills. She was prepared for discharge and given warning sign and callback instructions. Her wound VAC seems functional, but occasionally beeps alarm without evident problem. In the director of early childhood education of postoperative day one, her blood pressure did rise to 138/90, but remained normal thereafter. DISCHARGE MEDICATIONS 1. Motrin 600 mg q.6 h. around the clock. 2. Phoenix 325 q.4 h. p.r.n. breakthrough pain. 3. Colace 250 mg b.i.d. 4. Labetalol 100 b.i.d. if pressure remains high. FOLLOWUP: Within seven days postop for wound VAC removal. Routine check at two weeks and six weeks . TD: 04/30/2018 07:40 Orig. signed 04/30/18@0809 Revised 05/02/18 shelley Discharge date correction MTDD
[2018-04-30] MEDS: DOCUSATE SODIUM 100 MG CAPSULE PO SCH (09:49)
[2018-04-30] MEDS: IBUPROFEN 600 MG TABLET PO SCH (09:49)
[2018-04-30 14:50] VITALS: BP 132/71
== END 2018-04-30 18:00 | disposition home or self-care (01) | DRG 766 ==
LOC: WFO 12:19 → FBP 12:20 → WFO 13:14 → FBP 13:15
PROVIDERS: ADMIT Obstetrics & Gynecology; ATTEND Nurse Practitioner Obstetrics & Gynecology
PROC: 10D00Z1 Extraction of Products of Conception, Low, Open Approach (ICD-10-PCS; principal; 2018-04-28 15:00)
DX: O14.14 Severe pre-eclampsia complicating childbirth (principal); O36.63X0 Maternal care for excessive fetal growth, third trimester, not applicable or unspecified; O69.81X0 Labor and delivery complicated by cord around neck, without compression, not applicable or unspecified; O62.2 Other uterine inertia; Z3A.38 38 weeks gestation of pregnancy; Z37.0 Single live birth; Z85.828 Personal history of other malignant neoplasm of skin; Z86.2 Personal history of diseases of the blood and blood-forming organs and certain disorders involving the immune mechanism; Z86.59 Personal history of other mental and behavioral disorders; Z86.69 Personal history of other diseases of the nervous system and sense organs
CPT/HCPCS: 36415; 59025; 82570; 83615; 84156; 84450; 84550; 85025; 86850; 86900; 86901; 88307

== ENCOUNTER 2018-11-15 10:47 | Outpatient (CLI) | payer OTHER ==
[2018-11-15 19:17] LABS: BASOPHILS % (AUTO) 0.5 %; EOSINOPHILS % (AUTO) 0.7 %; HGB - HEMOGLOBIN 13.3 g/dL (12.0-16.0); LYMPHOCYTES # (AUTO) 1.8 10^3/uL (1.5-3.5); LYMPHOCYTES % (AUTO) 26.6 %; MEAN CORPUSCULAR HEMOGLOBIN 28.9 pg (27.0-31.0); MEAN CORPUSCULAR HGB CONC 32.3 g/dL (32.0-36.0); MEAN CORPUSCULAR VOLUME 89.4 fL (81.0-99.0); MEAN PLATELET VOLUME 9.5 fL (7.9-10.8); MONOCYTES # (AUTO) 0.5 10^3/uL (0.0-1.0); MONOCYTES % (AUTO) 7.6 %; NEUTROPHILS # (AUTO) 4.4 10^3/uL (1.5-6.6); NEUTROPHILS % (AUTO) 64.6 %; PLT - PLATELET COUNT 259 10^3/uL (130-450); RED BLOOD COUNT 4.59 10^6/uL (4.20-5.40); RED CELL DISTRIBUTION WIDTH 14.7 % (12.0-15.0); WHITE BLOOD COUNT 6.8 x10^3/uL (4.8-10.8)
[2018-11-15 19:41] LABS: ALBUMIN 4.3 g/dL (3.2-5.5); ALBUMIN/GLOBULIN RATIO 1.2 (1.0-2.2); ALKALINE PHOSPHATASE 60 IU/L (42-121); ALT ALANINE AMINOTRANSFERASE < 10 IU/L (10-60); AST ASPARTATE AMINOTRANSFERASE 14 IU/L (10-42); BILIRUBIN,TOTAL 0.4 mg/dL (0.2-1.0); BUN - BLOOD UREA NITROGEN 19 mg/dL (6-20); CALCIUM 9.3 mg/dL (8.5-10.3); CARBON DIOXIDE - CO2 21 mmol/L (21-32); CHLORIDE 104 mmol/L (101-111); CREATININE 0.8 mg/dL (0.4-1.0); GFR - MDRD 85 (>89); GLUCOSE 74 mg/dL (70-100); SODIUM 137 mmol/L (135-145); TOTAL PROTEIN 7.9 g/dL (6.7-8.2)
[2018-11-15 19:44] LABS: T4 (THYROXINE) 5.98 ug/dL (6.09-12.23)
[2018-11-15 19:48] LABS: THYROID STIMULATING HORMONE 1.68 uIU/mL (0.34-5.60)
[2018-11-15 20:16] LABS: FOLLICLE STIMULATING HORMONE 5.65 mIU/mL
[2018-11-15 20:17] LABS: LUTEINIZING HORMONE 6.86 mIU/mL
[2018-11-16 07:26] LABS: PROGESTERONE 8.2 ng/mL
== END 2018-11-15 23:59 | disposition home or self-care (01) ==
LOC: LAB.N 10:47
PROVIDERS: ATTEND Registered Nurse
DX: R53.83 Other fatigue (principal); L65.9 Nonscarring hair loss, unspecified
CPT/HCPCS: 36415; 80053; 81599; 82626; 82670; 83001; 83002; 84144; 84402; 84403; 84436; 84439; 84443; 85025

== ENCOUNTER 2019-04-21 08:00 | Outpatient (CLI) | payer OTHER ==
[2019-04-21 20:03] LABS: THYROID STIMULATING HORMONE 0.62 uIU/mL (0.34-5.60)
[2019-04-21 20:07] LABS: FREE T4 (FREE THYROXINE) 1.14 ng/dL (0.58-1.64)
== END 2019-04-21 23:59 | disposition home or self-care (01) ==
LOC: LAB.N 08:00
PROVIDERS: ATTEND Physician Assistant
DX: E03.9 Hypothyroidism, unspecified (principal)
CPT/HCPCS: 36415; 84439; 84443

== ENCOUNTER 2020-08-09 15:14 | Outpatient (CLI) | payer BC ==
--- NOTE | 2020-08-10 16:47 | Ultrasound Report ---
LIMITED ULTRASOUND OF LEFT BREAST: 08/09/2020 CLINICAL: Palpable left sternum lump. Baseline ultrasounds. No prior exams were available for comparison. Color flow and real-time ultrasound of the left breast 7 o'clock region were performed. Rod scale i mages of the real-time examination were reviewed. There is a 1.7 cm x 1.4 cm x 1.1 cm irregular cyst with an irregular internal wall in the left breast at 7 o'clock posterior depth 11 cm from the nipple. This is just lateral of the sternum at the infra mammary fold. This irregular cyst is hypoechoic with posterior acoustic enhancement. The cyst is ju st deep to the skin and there is a track which projects deep to the skin about 1 cm deep. This correl ates with area of redness and area of clinical concern. Color flow imaging demonstrates that there i s vascularity present. IMPRESSION: PROBABLY BENIGN The 1.7 cm x 1.4 cm x 1.1 cm irregular cyst in the left breast/left inferior mammary fold and resembl es a sebaceous cyst and is probably benign. A follow-up ultrasound in 3 months is recommended. Findings were discussed with the patient and evaluated by Dr. Jeremy Carrillo. This exam was interpreted at Station ID: [id number]. Electronically Signed By: Christiano Byrnes M.D. slc/:08/09/2020 16:50:27 Ultrasound BI-RADS: 3 Probably benign BI-RADS CATEGORY: (3) - 3 Ultrasound [id number] 3 month follow-up LATERALITY: (B)
== END 2020-08-09 15:15 | disposition home or self-care (01) ==
LOC: DI 15:14
PROVIDERS: ATTEND Physician Assistant
DX: N60.02 Solitary cyst of left breast (principal)
CPT/HCPCS: 76642

== ENCOUNTER 2020-12-29 09:12 | Outpatient (CLI) | payer OTHER ==
[2020-12-29 13:48] LABS: BASOPHILS # (AUTO) 0.1 10^3/uL (0.0-0.1); BASOPHILS % (AUTO) 0.9 %; EOSINOPHILS # (AUTO) 0.1 10^3/uL (0.0-0.7); EOSINOPHILS % (AUTO) 1.1 %; HCT - HEMATOCRIT 42.9 % (37.0-47.0); HGB - HEMOGLOBIN 14.3 g/dL (12.0-16.0); LYMPHOCYTES # (AUTO) 1.8 10^3/uL (1.5-3.5); LYMPHOCYTES % (AUTO) 32.7 %; MEAN CORPUSCULAR HGB CONC 33.3 g/dL (32.0-36.0); MEAN CORPUSCULAR VOLUME 92.9 fL (81.0-99.0); MEAN PLATELET VOLUME 11.8 fL (7.9-10.8); MONOCYTES # (AUTO) 0.5 10^3/uL (0.0-1.0); MONOCYTES % (AUTO) 8.2 %; NEUTROPHILS # (AUTO) 3.2 10^3/uL (1.5-6.6); NEUTROPHILS % (AUTO) 56.9 %; PLT - PLATELET COUNT 293 10^3/uL (130-450); RED BLOOD COUNT 4.62 10^6/uL (4.20-5.40); RED CELL DISTRIBUTION WIDTH 13.4 % (12.0-15.0); WHITE BLOOD COUNT 5.6 x10^3/uL (4.8-10.8)
[2020-12-29 13:56] LABS: ALBUMIN 4.6 g/dL (3.2-5.5); ALBUMIN/GLOBULIN RATIO 1.2 (1.0-2.2); BILIRUBIN,TOTAL 0.4 mg/dL (0.2-1.0); CALCIUM 10.3 mg/dL (8.5-10.3); POTASSIUM 4.6 mmol/L (3.5-5.0); TOTAL PROTEIN 8.4 g/dL (6.7-8.2)
[2020-12-29 14:34] LABS: THYROID STIMULATING HORMONE 1.27 uIU/mL (0.34-5.60)
== END 2020-12-29 09:13 | disposition home or self-care (01) ==
LOC: LAB.N 09:12
PROVIDERS: ATTEND Physician Assistant Medical
DX: Z00.00 Encounter for general adult medical examination without abnormal findings (principal); E03.9 Hypothyroidism, unspecified; R53.83 Other fatigue; G43.909 Migraine, unspecified, not intractable, without status migrainosus; F32.9 Major depressive disorder, single episode, unspecified; L65.9 Nonscarring hair loss, unspecified; L72.3 Sebaceous cyst
CPT/HCPCS: 36415; 80053; 84443; 85025

== ENCOUNTER 2020-12-31 08:00 | Outpatient (CLI) | payer OTHER | END 2020-12-31 23:59 | disposition home or self-care (01) | LOC: LAB.WCP 08:00 | PROVIDERS: ATTEND Family Medicine | DX: R53.83 Other fatigue (principal) | CPT/HCPCS: 36415; 82306; 85651; 86140 ==

== ENCOUNTER 2021-05-20 07:48 | Outpatient (CLI) | payer OTHER ==
--- NOTE | 2021-05-20 08:43 | Ultrasound Report ---
PROCEDURE: Abdomen Limited INDICATIONS: NAUSEA AND VOMITING TECHNIQUE: Real-time scanning was performed of the abdominal and retroperitoneal organs, with image documentatio n. COMPARISON: None. FINDINGS: Liver: Liver is normal in size and homogeneous in echotexture. Overall, liver echotexture is diffuse ly echogenic. No focal intrahepatic lesions. Gallbladder: Gallbladder is mildly contracted. No gallstone visualized. Gallbladder wall is normal in thickness measuring 2 mm. No pericholecystic fluid. No reported sonographic Cagle sign. Biliary ducts: Intrahepatic bile ducts are non-dilated. Extrahepatic bile duct caliber measures 3 m m. Normal is 6-7 mm or less in diameter, or 10 mm or less post-cholecystectomy. Pancreas: Visualized portions of the pancreas are sonographically normal. Kidneys: Right kidney is normal in size and echotexture. Right kidney measures 11.6 cm long; no hydr onephrosis or nephrolithiasis. No solid masses. Miscellaneous: No free abdominal fluid. IMPRESSION: 1. Abdomen without acute sonographic abnormalities. 2. No sonographic evidence for cholelithiasis or acute cholecystitis. 3. Liver demonstrates diffusely increased parenchymal echogenicity which may be seen with hepatic constanza atosis. Reviewed by: Jose Rivera MD on 05/20/2021 8:42 AM PDT Approved by: Jose Rivera MD on 05/20/2021 8:42 AM PDT Station ID: [id number]
== END 2021-05-20 07:49 | disposition home or self-care (01) ==
LOC: DI 07:48
PROVIDERS: ATTEND Physician Assistant Medical
DX: R11.2 Nausea with vomiting, unspecified (principal)

== ENCOUNTER 2021-08-01 14:12 | Outpatient (CLI) | payer OTHER | END 2021-08-01 23:59 | disposition home or self-care (01) | LOC: LAB.WCP 14:12 | PROVIDERS: ATTEND Physician Assistant Medical | DX: Z32.00 Encounter for pregnancy test, result unknown (principal) | CPT/HCPCS: 36415; 84702 ==

== ENCOUNTER 2021-08-16 08:00 | Outpatient (CLI) | payer OTHER ==
[2021-08-16 17:28] LABS: BILIRUBIN,URINE NEGATIVE (NEGATIVE); GLUCOSE, URINE (UA) NEGATIVE (NEGATIVE); KETONES,URINE (UA) NEGATIVE (NEGATIVE); LEUKOCYTE ESTERASE, URINE NEGATIVE (NEGATIVE); NITRITE,URINE NEGATIVE (NEGATIVE); OCCULT BLOOD,URINE NEGATIVE (NEGATIVE); PH,URINE 5.5 PH (5.0-7.5); PROTEIN,URINE NEGATIVE (NEGATIVE); UROBILINOGEN,URINE 0.2 (NORMAL) E.U./dL (NORMAL)
[2021-08-16 17:30] LABS: CLARITY,URINE CLOUDY (CLEAR)
[2021-08-16 17:40] LABS: RBC,URINE None Seen /HPF (0-5); WBC,URINE 0-3 /HPF (0-5)
[2021-08-16 17:41] LABS: BACTERIA,URINE None Seen /HPF (None Seen); SQUAMOUS EPITHELIAL CELL,UR NONE SEEN (<= Few)
[2021-08-16 17:44] LABS: AMORPHOUS SEDIMENT,UR Marked /LPF
== END 2021-08-16 23:59 | disposition home or self-care (01) ==
LOC: LAB 08:00
PROVIDERS: ATTEND Obstetrics & Gynecology
DX: O09.90 Supervision of high risk pregnancy, unspecified, unspecified trimester (principal)
CPT/HCPCS: 81001; 87086

== ENCOUNTER 2021-08-26 16:01 | Outpatient (CLI) | payer OTHER ==
--- NOTE | 2021-08-29 16:54 | Ultrasound Report ---
PROCEDURE: OB First Trimester w/TV INDICATIONS: SUPERVISION OF HIGH RISK OUTSIDE/PRIOR DATING DATA: Last menstrual period (LMP): 06/30/2021. LMP-based estimated date of delivery (ROSALIND): 04/06/2022. First dating scan (date and location): 08/26/2021. Estimated date of delivery (ROSALIND) from first dating scan: 04/06/2022. TECHNIQUE: Real-time scanning was performed of the fetus and maternal pelvic organs, with image documentation. Endovaginal scanning was also performed to better visualize the fetus and maternal ovaries. COMPARISON: None FINDINGS: Embryo: Single living intrauterine gestation is present with a crown-rump length of 17 mm, correspon ding to an 8 week 1 day gestation. Small subchorionic hemorrhage measuring 13 mm. Heart rate: 160 Measurement variability in dating: +/- 4 weeks by LMP, +/- 7 days by mean sac diameter (use before 6 weeks gestation if crown-rump length not able to be measured), +/- 5 days by crown-rump length (6-12 weeks gestation). Maternal organs: Ovaries left ovarian corpus luteal cyst.. IMPRESSION: 1. Single living intrauterine gestation. 2. Small subchorionic hemorrhage. Reviewed by: Wiley Galloway MD on 08/29/2021 4:53 PM PDT Approved by: Wiley Galloway MD on 08/29/2021 4:53 PM PDT Station ID: [id number]
== END 2021-08-26 16:02 | disposition home or self-care (01) ==
LOC: DI 16:01
PROVIDERS: ATTEND Obstetrics & Gynecology
DX: O09.91 Supervision of high risk pregnancy, unspecified, first trimester (principal); Z3A.08 8 weeks gestation of pregnancy; O20.8 Other hemorrhage in early pregnancy; O99.281 Endocrine, nutritional and metabolic diseases complicating pregnancy, first trimester; Z36.89 Encounter for other specified antenatal screening; E55.9 Vitamin D deficiency, unspecified
CPT/HCPCS: 36415; 82306; 85025; 86592; 86762; 86787; 86803; 86850; 86900; 86901; 87340; 87389

== ENCOUNTER 2021-08-26 16:16 | Outpatient (CLI) | payer OTHER ==
[2021-08-26 17:43] LABS: BASOPHILS % (AUTO) 0.5 %; EOSINOPHILS # (AUTO) 0.1 10^3/uL (0.0-0.7); HCT - HEMATOCRIT 38.3 % (37.0-47.0); HGB - HEMOGLOBIN 12.8 g/dL (12.0-16.0); LYMPHOCYTES # (AUTO) 2.8 10^3/uL (1.5-3.5); LYMPHOCYTES % (AUTO) 32.2 %; MEAN CORPUSCULAR HEMOGLOBIN 30.8 pg (27.0-31.0); MEAN CORPUSCULAR HGB CONC 33.4 g/dL (32.0-36.0); MEAN CORPUSCULAR VOLUME 92.3 fL (81.0-99.0); MEAN PLATELET VOLUME 10.4 fL (7.9-10.8); MONOCYTES # (AUTO) 0.7 10^3/uL (0.0-1.0); MONOCYTES % (AUTO) 8.4 %; NEUTROPHILS # (AUTO) 5.1 10^3/uL (1.5-6.6); NEUTROPHILS % (AUTO) 57.7 %; PLT - PLATELET COUNT 288 10^3/uL (130-450); RED BLOOD COUNT 4.15 10^6/uL (4.20-5.40); RED CELL DISTRIBUTION WIDTH 12.5 % (12.0-15.0); WHITE BLOOD COUNT 8.8 x10^3/uL (4.8-10.8)
[2021-08-27 08:51] LABS: HEPATITIS B SURFACE ANTIGEN NON-REACTIVE (NON-REACTIVE); HEPATITIS C ANTIBODY NON-REACTIVE (NON-REACTIVE)
[2021-08-27 12:51] LABS: HIV AG/AB 4TH GEN NON-REACTIVE (NON-REACTIVE)
== END 2021-08-26 16:17 | disposition home or self-care (01) ==
LOC: LAB 16:16
PROVIDERS: ATTEND Obstetrics & Gynecology
DX: O09.90 Supervision of high risk pregnancy, unspecified, unspecified trimester (principal); O99.280 Endocrine, nutritional and metabolic diseases complicating pregnancy, unspecified trimester; Z36.89 Encounter for other specified antenatal screening; E55.9 Vitamin D deficiency, unspecified
CPT/HCPCS: 36415; 82306; 85025; 86592; 86762; 86787; 86803; 86850; 86900; 86901; 87340; 87389

== ENCOUNTER 2021-09-30 10:26 | Outpatient (CLI) | payer OTHER | END 2021-09-30 10:27 | disposition home or self-care (01) | LOC: LAB 10:26 | PROVIDERS: ATTEND Obstetrics & Gynecology | DX: O09.90 Supervision of high risk pregnancy, unspecified, unspecified trimester (principal) | CPT/HCPCS: 36415 ==

== ENCOUNTER 2021-11-18 13:48 | Outpatient (CLI) | payer OTHER ==
--- NOTE | 2021-11-18 16:29 | Ultrasound Report ---
PROCEDURE: OB Detailed Eval INDICATIONS: SUPERVISION OF OUTSIDE/PRIOR DATING DATA: Last menstrual period (LMP): 06/30/2021. LMP-based estimated date of delivery (ROSALIND): 04/06/2022. First dating scan (date and location): 08/26/2021. Estimated date of delivery (ROSALIND) from first dating scan: 04/06/2022. The below data below was generated using the ultrasound ROSALIND of 04/06/2022 TECHNIQUE: Real-time scanning was performed of the fetus, with image documentation and biometric measurements. COMPARISON: OB ultrasound 08/26/2021 FINDINGS: General: A single living intrauterine gestation is present. Presentation: Transverse Placenta: Placental position is posterior, without previa. Amniotic fluid index: 10.1 cm, within normal limits for gestational age. Largest pocket 3.0 cm heart rate: 155 beats per minute. Maternal cervical canal: 4.1 cm long; normal length is 2.5 cm or more. biometrics: Biparietal diameter: 4.6 cm 19 weeks 5 days Head circumference: 17.9 cm 20 weeks 4 days Abdominal circumference: 15.2 cm 20 weeks 3 days Femur length: 3.2 cm 19 weeks Estimated gestational age from initial scan: 20 weeks 1 day Composite gestational age from present scan: 19 weeks 6 days Estimated weight and percentile: 329 g 40th percentile Measurement variability in biometric dating: +/- 10 days from 12-20 weeks gestation, +/- 2 weeks from 20-30 weeks gestation, +/- 3 weeks at 30 weeks gestation or later. Anatomic survey: Neuro: Ventricles are normal at less than 10 mm. Cisterna magna is normal at 3-11 mm. Cerebellum i s normal in size and morphology. Nuchal skin fold: Normal at less than 6 mm between 14 and 20 weeks gestational age. Face: Nose and lips, facial profile are normal. Spine: Not well visualized. Heart: 4-chambered heart is present, with normal ventricular outflow tra cts. Diaphragm: Diaphragm is intact. Stomach: Left-sided stomach is present. Kidneys: No hydronephrosis. Normal is less than 5 mm in 2nd trimester, less than 7 mm in 3rd trimester. Cord: 3 vessel cord has orthotopic insertion. Bladder: Normal in size. Extremities: All 4 extremities are visualized. IMPRESSION: Single live intrauterine with ultrasound gestational age of 19 weeks 6 days compared to 20 weeks 1 day from initial ultrasound. 2. Spine is not well seen. Recommend interval follow-up for further evaluation. Reviewed by: Aysha Adam MD on 11/18/2021 4:27 PM PST Approved by: Aysha Adam MD on 11/18/2021 4:27 PM PST Station ID: [id number]
== END 2021-11-18 13:49 | disposition home or self-care (01) ==
LOC: DI 13:48
PROVIDERS: ATTEND Obstetrics & Gynecology
DX: O09.92 Supervision of high risk pregnancy, unspecified, second trimester (principal); Z3A.19 19 weeks gestation of pregnancy; Z36.89 Encounter for other specified antenatal screening

== ENCOUNTER 2021-12-16 15:14 | Outpatient (CLI) | payer OTHER ==
--- NOTE | 2021-12-16 17:56 | Ultrasound Report ---
PROCEDURE: OB F/U or Repeat INDICATIONS: SUPERVISION OF HIGH RISK OUTSIDE/PRIOR DATING DATA: Last menstrual period (LMP): 06/30/2021. LMP-based estimated date of delivery (ROSALIND): 04/06/2022. First dating scan (date and location): 08/06/2021. Estimated date of delivery (ROSALIND) from first dating scan: 04/06/2022. The below data below was generated using the ultrasound ROSALIND of 04/06/2022 TECHNIQUE: Real-time scanning was performed of the fetus, with image documentation. COMPARISON: 08/26/2021, 11/18/2021 FINDINGS: General: A single intrauterine gestation is present. Presentation: Vertex Placenta: Placental position is posterior, without previa. Amniotic fluid index: 14.6 cm, within normal limits for gestational age. heart rate: 133 beats per minute. Maternal cervical canal: 3.7 cm long; normal length is 2.5 cm or more. Other: The lumbar spine and the sacrum are within normal limits. IMPRESSION: The spine now appears normal. No significant abnormality is seen. Reviewed by: Serg Mckeon MD on 12/16/2021 4:55 PM SHAWN Approved by: Serg Mckeon MD on 12/16/2021 4:55 PM [place] Station ID: [id number]
== END 2021-12-16 15:15 | disposition home or self-care (01) ==
LOC: DI 15:14
PROVIDERS: ATTEND Obstetrics & Gynecology
DX: O09.90 Supervision of high risk pregnancy, unspecified, unspecified trimester (principal); Z3A.00 Weeks of gestation of pregnancy not specified

== ENCOUNTER 2022-01-10 08:40 | Outpatient (CLI) | payer OTHER ==
[2022-01-10 10:20] LABS: HCT - HEMATOCRIT 34.5 % (37.0-47.0); MEAN CORPUSCULAR HEMOGLOBIN 31.2 pg (27.0-31.0); MEAN CORPUSCULAR HGB CONC 34.8 g/dL (32.0-36.0); MEAN CORPUSCULAR VOLUME 89.6 fL (81.0-99.0); MEAN PLATELET VOLUME 10.5 fL (7.9-10.8); RED BLOOD COUNT 3.85 10^6/uL (4.20-5.40); RED CELL DISTRIBUTION WIDTH 13.8 % (12.0-15.0); WHITE BLOOD COUNT 10.1 x10^3/uL (4.8-10.8)
== END 2022-01-10 08:41 | disposition home or self-care (01) ==
LOC: LAB 08:40
PROVIDERS: ATTEND Obstetrics & Gynecology
DX: O09.90 Supervision of high risk pregnancy, unspecified, unspecified trimester (principal); Z36.89 Encounter for other specified antenatal screening; O99.891 Other specified diseases and conditions complicating pregnancy; L29.9 Pruritus, unspecified; O99.280 Endocrine, nutritional and metabolic diseases complicating pregnancy, unspecified trimester; E03.9 Hypothyroidism, unspecified
CPT/HCPCS: 36415; 81599; 82239; 82950; 84443; 85027

== ENCOUNTER 2022-02-10 08:00 | Outpatient (CLI) | payer OTHER ==
[2022-02-10 22:01] LABS: BACTERIAL VAGINOSIS DNA NEGATIVE (NEGATIVE); CANDIDA GLABRATA DNA NEGATIVE (NEGATIVE); CANDIDA GROUP DNA POSITIVE (NEGATIVE); CANDIDA KRUSEI DNA NEGATIVE (NEGATIVE); TRICHOMONAS VAGINALIS DNA NEGATIVE (NEGATIVE)
== END 2022-02-10 23:59 | disposition home or self-care (01) ==
LOC: LAB.WC 08:00
PROVIDERS: ATTEND Obstetrics & Gynecology
DX: N76.0 Acute vaginitis (principal)
CPT/HCPCS: 81514

== ENCOUNTER 2022-02-22 09:51 | Outpatient (CLI) | payer OTHER ==
[2022-02-22 13:55] LABS: HCT - HEMATOCRIT 35.3 % (37.0-47.0); MEAN CORPUSCULAR HEMOGLOBIN 30.7 pg (27.0-31.0); MEAN CORPUSCULAR VOLUME 90.3 fL (81.0-99.0); MEAN PLATELET VOLUME 11.5 fL (7.9-10.8); RED BLOOD COUNT 3.91 10^6/uL (4.20-5.40); RED CELL DISTRIBUTION WIDTH 13.8 % (12.0-15.0); WHITE BLOOD COUNT 9.1 x10^3/uL (4.8-10.8)
[2022-02-22 14:06] LABS: CREATININE,URINE 128.5 mg/dL; PROTEIN/CREATININE RATIO,URINE 0.1 (<=0.2)
== END 2022-02-22 09:52 | disposition home or self-care (01) ==
LOC: LAB.N 09:51
PROVIDERS: ATTEND Obstetrics & Gynecology
DX: R10.11 Right upper quadrant pain (principal); E03.9 Hypothyroidism, unspecified
CPT/HCPCS: 36415; 82570; 84156; 84443; 85027

== ENCOUNTER 2022-03-14 08:00 | Outpatient (CLI) | payer OTHER | END 2022-03-14 23:59 | disposition home or self-care (01) | LOC: LAB 08:00 | PROVIDERS: ATTEND Obstetrics & Gynecology | DX: Z36.85 Encounter for antenatal screening for Streptococcus B (principal) | CPT/HCPCS: 87797 ==

== ENCOUNTER 2022-03-21 13:36 | Outpatient (CLI) | payer OTHER ==
[2022-03-21 14:11] VITALS: BP 131/81
[2022-03-21 14:23] LABS: RUPTURE OF MEMBRANES PLUS NEGATIVE (NEGATIVE)
--- NOTE | 2022-03-21 14:26 | PROVIDER PROGRESS NOTE ---
- HPI Chief Complaint: Leakage of vaginal fluid Current : Current EDU 04/06/22 Gestation 37 Weeks and 5 Days 2 Para 1 Vital Signs Temperature 97.7 F 03/21/22 13:58 Heart Rate 88 03/21/22 13:58 Respiratory Rate 16 03/21/22 13:58 Blood Pressure 131/81 H 03/21/22 13:58 Temperature 97.7 F 03/21/22 13:58 Heart Rate 88 03/21/22 13:58 Respiratory Rate 16 03/21/22 13:58 Blood Pressure 131/81 H 03/21/22 13:58 O2 Saturation - Procedures OB Procedure Performed: NST Diagnosis/Indication for NST: Decreased movement NST Procedure: NST Procedure Start Date 03/21/22 Start Time 13:52 Stop Time 14:16 Vibroacoustic Stimulation Used No Patient States Movement Yes Service Date of procedure: 03/21/22 (Read 03/21/22) - Plan Plan: Patient is a 32-year-old -0-0-1 at 37 weeks 5 days gestation presenting to triage for decreased movement and leaking fluid. She feels some movement now, but decreased overnight. No vaginal bleeding. Had an episode of vaginal leaking when standing up in the kitchen earlier. Does have some urinary leaking throughout , but this seems unusual. She denies headache, right upper quadrant pain, changes in vision. Past medical history No significant past medical history Past surgical history Previous low transverse section x1 Removal of precancerous facial lesion Family history Mother: Hypertension, bipolar Maternal grandmother: Brain cancer Father: [place] Social history Denies tobacco, alcohol, drugs Physical Exam Temp Pulse Resp BP Pulse Ox 97.7 F 88 17 131/81 H 03/21/22 15:22 03/21/22 15:22 03/21/22 15:22 03/21/22 15:22 Constitutional: alert, no acute distress, well hydrated, well developed, well nourished, appropriate dress. Skin: normal turgor, normal color. Head: atraumatic, normocephalic. Cardiovascular: RRR. Respiratory: no respiratory distress. Abdomen: nondistended, nontender. Spine: normal mobility. Neurologic: normal, sensation intact, motor intact. Psych: affect and mood appropriate, normal interaction, good eye contact. NST: 130 beats per baseline, moderate variability, accelerations present, no decelerations. Fults: Quiescent Labs: ROM plus negative BPP 8/8, FARHAT normal. Assessment and plan 32-year-old -0-0-1 at 37 weeks 5 days gestation with decreased movement and urinary incontinence 1. Decreased movement -Multiple episodes of movement after arrival to appointment. NST/BPP are normal and reassuring. Discussed kick counts with patient. -Follow up in clinic for routine obstetrical care. Planning on planned at 39 weeks 2. Rule out rupture -ROM plus negative. Likely urine and not a problem with her amniotic membrane. 3. Previous low transverse section x1 -Plan for repeat low-transverse section at 39 weeks.
--- NOTE | 2022-03-21 15:42 | Ultrasound Report ---
PROCEDURE: OB Biophysical Profile INDICATIONS: decreased movement OUTSIDE/PRIOR DATING DATA: Last menstrual period (LMP): 06/30/2021. LMP-based estimated date of delivery (ROSALIND): 04/06/2022. First dating scan (date and location): 08/26/2021. Estimated date of delivery (ROSALIND) from first dating scan: 04/06/2022. The below data below was generated using the ultrasound ROSALIND of 04/06/2022. TECHNIQUE: Real-time scanning was performed of the fetus, with image documentation and biometric louis surements. Biophysical profile was also obtained. COMPARISON: OB ultrasound 03/15/2022 FINDINGS: General: A single living intrauterine gestation is present. Presentation: Vertex Placenta: Placental position is posterior, without previa. Amniotic fluid index: 16 cm, normal for gestational age. Largest pocket 4.6 cm. heart rate: 129 beats per minute. Maternal cervical canal: Not well seen. Estimated gestational age from initial scan: 37 weeks 5 days. Biophysical profile: Tone: 2 points. Movement: 2 points. Respiration: 2 points. Largest pocket of fluid: 2 points. Umbilical artery Doppler: 1.96; 2.31; 2.11. Preserved diastolic flow. IMPRESSION: 1. Su living intrauterine at 37 weeks 5 days based on prior ultrasound. 2. Normal placenta and amniotic fluid. 3. Normal biophysical profile score 8 out of 8. Umbilical artery Doppler is within normal limits. Reviewed by: Christiano Byrnes MD on 03/21/2022 3:41 PM PDT Approved by: Christiano Byrnes MD on 03/21/2022 3:41 PM PDT Station ID: [id number]
== END 2022-03-21 15:20 | disposition home or self-care (01) ==
LOC: WFO 13:36 → FBP 13:38 → WFO 15:20
PROVIDERS: ATTEND Obstetrics & Gynecology
DX: O36.8130 Decreased fetal movements, third trimester, not applicable or unspecified (principal); O99.891 Other specified diseases and conditions complicating pregnancy; R32 Unspecified urinary incontinence; Z3A.37 37 weeks gestation of pregnancy
CPT/HCPCS: 59025; 84112; 99213; 99214

== ENCOUNTER 2022-03-27 08:00 | Outpatient (CLI) | payer OTHER ==
[2022-03-27 17:41] LABS: BILIRUBIN,URINE NEGATIVE (NEGATIVE); GLUCOSE, URINE (UA) NEGATIVE (NEGATIVE); KETONES,URINE (UA) NEGATIVE (NEGATIVE); LEUKOCYTE ESTERASE, URINE NEGATIVE (NEGATIVE); NITRITE,URINE NEGATIVE (NEGATIVE); OCCULT BLOOD,URINE NEGATIVE (NEGATIVE); PROTEIN,URINE NEGATIVE (NEGATIVE); UROBILINOGEN,URINE 0.2 (NORMAL) E.U./dL (NORMAL)
[2022-03-27 17:45] LABS: CLARITY,URINE CLOUDY (CLEAR)
[2022-03-27 20:51] LABS: AMORPHOUS SEDIMENT,UR Marked /LPF; BACTERIA,URINE Few /HPF (None Seen); RBC,URINE None Seen /HPF (0-5); SQUAMOUS EPITHELIAL CELL,UR RARE Squamous (<= Few); WBC,URINE 0-3 /HPF (0-5)
[2022-03-27 22:52] LABS: BACTERIAL VAGINOSIS DNA NEGATIVE (NEGATIVE); CANDIDA GLABRATA DNA NEGATIVE (NEGATIVE); CANDIDA GROUP DNA POSITIVE (NEGATIVE); CANDIDA KRUSEI DNA NEGATIVE (NEGATIVE); TRICHOMONAS VAGINALIS DNA NEGATIVE (NEGATIVE)
== END 2022-03-27 23:59 | disposition home or self-care (01) ==
LOC: LAB 08:00
PROVIDERS: ATTEND Obstetrics & Gynecology
DX: N89.8 Other specified noninflammatory disorders of vagina (principal)
CPT/HCPCS: 81001; 81514; 87086

== ENCOUNTER 2022-03-31 10:19 | Outpatient (CLI) | payer OTHER ==
[2022-03-31 10:39] LABS: BASOPHILS % (AUTO) 0.3 %; EOSINOPHILS # (AUTO) 0.1 10^3/uL (0.0-0.7); EOSINOPHILS % (AUTO) 0.6 %; HCT - HEMATOCRIT 35.4 % (37.0-47.0); HGB - HEMOGLOBIN 11.9 g/dL (12.0-16.0); LYMPHOCYTES # (AUTO) 1.7 10^3/uL (1.5-3.5); LYMPHOCYTES % (AUTO) 18.1 %; MEAN CORPUSCULAR HEMOGLOBIN 29.7 pg (27.0-31.0); MEAN CORPUSCULAR HGB CONC 33.6 g/dL (32.0-36.0); MEAN CORPUSCULAR VOLUME 88.3 fL (81.0-99.0); MEAN PLATELET VOLUME 11.7 fL (7.9-10.8); MONOCYTES # (AUTO) 0.8 10^3/uL (0.0-1.0); MONOCYTES % (AUTO) 8.3 %; NEUTROPHILS # (AUTO) 6.9 10^3/uL (1.5-6.6); NEUTROPHILS % (AUTO) 72.2 %; PLT - PLATELET COUNT 220 10^3/uL (130-450); RED BLOOD COUNT 4.01 10^6/uL (4.20-5.40); RED CELL DISTRIBUTION WIDTH 13.4 % (12.0-15.0); WHITE BLOOD COUNT 9.6 x10^3/uL (4.8-10.8)
== END 2022-03-31 10:20 | disposition home or self-care (01) ==
LOC: LAB 10:19
PROVIDERS: ATTEND Obstetrics & Gynecology
DX: Z01.812 Encounter for preprocedural laboratory examination (principal); O34.211 Maternal care for low transverse scar from previous cesarean delivery
CPT/HCPCS: 36415; 85025; 86850; 86900; 86901

== ENCOUNTER 2022-04-17 08:00 | Outpatient (CLI) | payer OTHER ==
[2022-04-17 23:33] LABS: BACTERIAL VAGINOSIS DNA NEGATIVE (NEGATIVE); CANDIDA GLABRATA DNA NEGATIVE (NEGATIVE); CANDIDA GROUP DNA NEGATIVE (NEGATIVE); CANDIDA KRUSEI DNA NEGATIVE (NEGATIVE); TRICHOMONAS VAGINALIS DNA NEGATIVE (NEGATIVE)
== END 2022-04-17 23:59 | disposition home or self-care (01) ==
LOC: LAB.WC 08:00
PROVIDERS: ATTEND Obstetrics & Gynecology
DX: N89.8 Other specified noninflammatory disorders of vagina (principal)
CPT/HCPCS: 81514

== ENCOUNTER 2023-05-01 14:34 | Outpatient (CLI) | payer OTHER ==
[2023-05-01 17:49] LABS: BASOPHILS # (AUTO) 0.1 10^3/uL (0.0-0.1); BASOPHILS % (AUTO) 0.6 %; EOSINOPHILS # (AUTO) 0.2 10^3/uL (0.0-0.7); EOSINOPHILS % (AUTO) 1.8 %; HCT - HEMATOCRIT 38.9 % (37.0-47.0); HGB - HEMOGLOBIN 12.9 g/dL (12.0-16.0); LYMPHOCYTES # (AUTO) 2.5 10^3/uL (1.5-3.5); LYMPHOCYTES % (AUTO) 26.9 %; MEAN CORPUSCULAR HEMOGLOBIN 30.4 pg (27.0-31.0); MEAN CORPUSCULAR HGB CONC 33.2 g/dL (32.0-36.0); MEAN CORPUSCULAR VOLUME 91.5 fL (81.0-99.0); MEAN PLATELET VOLUME 11.3 fL (7.9-10.8); MONOCYTES # (AUTO) 0.7 10^3/uL (0.0-1.0); MONOCYTES % (AUTO) 7.8 %; NEUTROPHILS # (AUTO) 5.8 10^3/uL (1.5-6.6); NEUTROPHILS % (AUTO) 62.7 %; PLT - PLATELET COUNT 262 10^3/uL (130-450); RED BLOOD COUNT 4.25 10^6/uL (4.20-5.40); RED CELL DISTRIBUTION WIDTH 13.6 % (12.0-15.0); WHITE BLOOD COUNT 9.3 x10^3/uL (4.8-10.8)
[2023-05-01 18:03] LABS: ALBUMIN/GLOBULIN RATIO 1.1 (1.0-2.2); BILIRUBIN,TOTAL 0.3 mg/dL (0.2-1.0); CALCIUM 9.3 mg/dL (8.5-10.3); CREATININE 0.8 mg/dL (0.4-1.0); POTASSIUM 4.2 mmol/L (3.5-5.0); TOTAL PROTEIN 7.6 g/dL (6.7-8.2)
[2023-05-01 18:15] LABS: THYROID STIMULATING HORMONE 1.17 uIU/mL (0.34-5.60)
[2023-05-01 18:18] LABS: FERRITIN 19.4 ng/mL (11.0-306.8)
[2023-05-01 18:20] LABS: PROLACTIN 21.11 ng/mL
== END 2023-05-01 14:35 | disposition home or self-care (01) ==
LOC: LAB.N 14:34
PROVIDERS: ATTEND Physician Assistant Medical
DX: N92.0 Excessive and frequent menstruation with regular cycle (principal)
CPT/HCPCS: 36415; 80053; 82728; 83540; 84146; 84443; 84466; 85025

== ENCOUNTER 2023-05-11 14:00 | Outpatient (CLI) | payer OTHER ==
--- NOTE | 2023-05-12 09:39 | Ultrasound Report ---
PROCEDURE: Pelvic w/Transvaginal INDICATIONS: MENORRHAGIA TECHNIQUE: Real-time scanning was performed of the pelvic organs, with image documentation. Additional endovagi nal scanning was necessary due to incomplete visualization of the adnexal and endometrial structures by transabdominal scanning. COMPARISON: Pelvic ultrasound, 03/14/2008. FINDINGS: Uterus: Uterus is retroverted and normal in size at 8.3 x 5.2 x 6.3 cm. The myometrium is homogeneo us. The endometrium measures 6.6 mm in combined thickness. Ovaries: The right ovary measures 2.6 x 2.1 x 2.0 cm, with a calculated ovarian volume of 5.7 cc. T he left ovary measures 2.5 x 1.3 x 1.7 cm, with a calculated ovarian volume of 2.9 cc. The ovaries h ave a normal sonographic appearance. Less than 12 follicles can be seen in each ovary. No adnexal m asses are seen. No cystic lesions measuring greater than 3 cm. Other: No pathologic free abdominal or pelvic fluid. IMPRESSION: Unremarkable pelvic ultrasound exam. A cause for menorrhagia is not identified. Reviewed by: Ronel Lizarraga MD on 05/12/2023 9:37 AM PDT Approved by: Ronel Lizarraga MD on 05/12/2023 9:37 AM PDT Station ID: [id number]
== END 2023-05-11 14:01 | disposition home or self-care (01) ==
LOC: DI 14:00
PROVIDERS: ATTEND Physician Assistant Medical
DX: N92.0 Excessive and frequent menstruation with regular cycle (principal)

== ENCOUNTER 2023-08-03 08:00 | Outpatient (CLI) | payer OTHER ==
[2023-08-03 23:02] LABS: BACTERIAL VAGINOSIS DNA NEGATIVE (NEGATIVE); CANDIDA GLABRATA DNA NEGATIVE (NEGATIVE); CANDIDA GROUP DNA POSITIVE (NEGATIVE); CANDIDA KRUSEI DNA NEGATIVE (NEGATIVE); TRICHOMONAS VAGINALIS DNA NEGATIVE (NEGATIVE)
== END 2023-08-03 23:59 | disposition home or self-care (01) ==
LOC: LAB.WCP 08:00
PROVIDERS: ATTEND Physician Assistant Medical
DX: N76.0 Acute vaginitis (principal)
CPT/HCPCS: 81514

== ENCOUNTER 2023-12-10 08:00 | Outpatient (CLI) | payer OTHER ==
[2023-12-11 21:19] LABS: BACTERIAL VAGINOSIS DNA NEGATIVE (NEGATIVE); CANDIDA GLABRATA DNA NEGATIVE (NEGATIVE); CANDIDA GROUP DNA POSITIVE (NEGATIVE); CANDIDA KRUSEI DNA NEGATIVE (NEGATIVE); TRICHOMONAS VAGINALIS DNA NEGATIVE (NEGATIVE)
== END 2023-12-10 23:59 | disposition home or self-care (01) ==
LOC: LAB.WC 08:00
PROVIDERS: ATTEND Nurse Practitioner
DX: N89.8 Other specified noninflammatory disorders of vagina (principal)
CPT/HCPCS: 81514

== ENCOUNTER 2023-12-23 08:00 | Outpatient (CLI) | payer OTHER ==
[2023-12-23 19:20] LABS: BACTERIAL VAGINOSIS DNA NEGATIVE (NEGATIVE); CANDIDA GLABRATA DNA NEGATIVE (NEGATIVE); CANDIDA GROUP DNA NEGATIVE (NEGATIVE); CANDIDA KRUSEI DNA NEGATIVE (NEGATIVE); TRICHOMONAS VAGINALIS DNA NEGATIVE (NEGATIVE)
== END 2023-12-23 23:59 | disposition home or self-care (01) ==
LOC: LAB.WC 08:00
PROVIDERS: ATTEND Obstetrics & Gynecology
DX: N89.8 Other specified noninflammatory disorders of vagina (principal)
CPT/HCPCS: 81514

== ENCOUNTER 2024-03-16 08:00 | Outpatient (CLI) | payer OTHER ==
--- NOTE | 2024-03-16 13:31 | XRAY Report ---
PROCEDURE: Chest 2V INDICATIONS: CHEST PAIN, PLEURITIC TECHNIQUE: 2 views of the chest were acquired. COMPARISON: None. FINDINGS: Surgical changes and devices: None. Lungs and pleura: Possible left perihilar calcified granuloma. No dense airspace disease or pleural effusion. Mediastinum: Normal heart size Bones and chest wall: Unremarkable IMPRESSION: No acute radiographic abnormality. Reviewed by: Chu Lee MD on 03/16/2024 1:29 PM PDT Approved by: Chu Lee MD on 03/16/2024 1:29 PM PDT Station ID: [id number]
== END 2024-03-16 08:15 | disposition home or self-care (01) ==
LOC: DI.N 08:00
PROVIDERS: ATTEND Physician Assistant Medical
DX: R07.81 Pleurodynia (principal)
CPT/HCPCS: 36415; 85379

== ENCOUNTER 2024-03-17 07:55 | Emergency (ER) | payer OTHER ==
--- NOTE | 2024-03-17 08:46 | ED Physician Documentation ---
History of Present Illness - Stated complaint Stated Complaint: OLGUIN - Chief complaint Chief Complaint: General - History obtained from History obtained from: Patient - Additonal information Additional information: The patient comes to the emergency department chief complaint of bad headache and nausea. She states that she has had an upper respiratory infection which she caught from her kids for about the last 2 to 3 weeks. About 2 weeks ago, she flew to and from the [facility] and had a lot of sinus pain on the plane. She states that she has gotten "sinus infections" ever since she was a kid and has had to be on antibiotics a lot of times for this. She denies any sore throat but has had a persistent headache throughout the course of the illness. She states that she thought things were getting better but then felt like her sinuses were getting worse so about 3 days ago, she had a telemedicine appointment through her primary doctor's office. They put her on doxycycline and a steroid and she states she feels a little bit better as far as her sinus congestion since then. However, yesterday, she woke up with substernal chest pain in the middle of the night and it persisted through the rest of the night, keeping her awake. She finally decided to go to the walk-in clinic yesterday where they did EKG, chest x-ray, and D-dimer. They told her her lungs were "extremely inflamed" and gave her a DuoNeb and a shot of Toradol. The patient states that her chest pain went away and she is continue to take her steroid and antibiotic. This morning however, she woke up with a worse headache than before which she states is almost all in her face. She states both of her temples hurt as well as her forehead and maxillary area and teeth. No swelling. She has a little bit of stiffness and ache in her occipital area going down through her neck. She states this has been going on the whole time she has had this illness. The patient states she decided to come here because the headache was so bad and because with the nausea, she cannot really drink water to speak of. The patient states she has a history of headaches on occasion and does sometimes get migraines but is on Topamax daily since turning 17 and this usually keeps her migraines a day. No other complaints at this time. The patient denies any vomiting. PD PAST MEDICAL HISTORY - Past Medical History Past Medical History: Yes Cardiovascular: None Respiratory: None Neuro: Migraines Endocrine/Autoimmune: None GI: None : None Musculoskeletal: None Derm: None - Past Surgical History Past Surgical History: Yes /PRINTING TECHNICIAN: section - Present Medications Home Medications: Ambulatory Orders Medication Instructions Recorded Confirmed Albuterol Sulfate [Proair 1 - 2 puffs IH Q4HR PRN 03/17/24 03/17/24 Respiclick] Benzonatate [Tessalon] 100 mg PO TID 03/17/24 03/17/24 Doxycycline Hyclate 100 mg PO BID 03/17/24 03/17/24 HYDROcod/ACETAM 5/325 [[place] 5/325] 1 - 2 tablet PO Q6H PRN #7 tablet 03/17/24 Levothyroxine [Synthroid] 50 mcg PO QDAC 03/17/24 03/17/24 Ondansetron Odt [Zofran] 4 mg TL Q6H PRN #10 tablet 03/17/24 Spironolactone [Aldactone] 50 mg PO DAILY 03/17/24 03/17/24 Topiramate 50 mg PO BID 03/17/24 03/17/24 - Allergies Allergies/Adverse Reactions: Allergies Allergy/AdvReac Type Severity Reaction Status Date / Time Penicillins Allergy Rash Verified 03/17/24 08:20 - Social History Does the pt smoke?: No Smoking Status: Never smoker Does the pt drink ETOH?: No Does the pt have substance abuse?: No PD ED PE NORMAL - Vitals Vital signs reviewed: Yes - General General: Alert and oriented X 3, No acute distress, Well developed/nourished - HEENT HEENT: Atraumatic, PERRL, EOMI, Moist mucous membranes, Other (No facial edema. Generalized tenderness throughout face and temples.) - Neck Neck: Supple, no meningeal sign - Cardiac Cardiac: RRR, No murmur - Respiratory Respiratory: No respiratory distress, Clear bilaterally - Abdomen Abdomen: Soft, Non tender, Non distended - Derm Derm: Normal color, Warm and dry, No rash - Extremities Extremities: No deformity, No edema - Neuro Neuro: Other (Alert, grossly intact) - Psych Psych: Normal mood, Normal affect Results - Vitals Vitals: Oxygen O2 Source Room air - Labs Labs: Laboratory Tests 03/17/24 08:33 Nasal Adenovirus (PCR) NOT DETECTED Nasal B. parapertussis DNA (PCR) NOT DETECTED Nasal Coronavir 229E PCR NOT DETECTED Nasal Coronavir HKU1 PCR NOT DETECTED Nasal Coronavir NL63 PCR NOT DETECTED Nasal Coronavir OC43 PCR NOT DETECTED Nasal Enterovir/Rhinovir PCR DETECTED A Nasal Influenza B PCR NOT DETECTED Nasal Influenza A PCR NOT DETECTED Nasal Parainfluen 1 PCR NOT DETECTED Nasal Parainfluen 2 PCR NOT DETECTED Nasal Parainfluen 3 PCR NOT DETECTED Nasal Parainfluen 4 PCR NOT DETECTED Nasal RSV (PCR) NOT DETECTED Nasal B.pertussis DNA PCR NOT DETECTED Nasal C.pneumoniae (PCR) NOT DETECTED Pito Human Metapneumo PCR NOT DETECTED Nasal M.pneumoniae (PCR) NOT DETECTED Nasal SARS-CoV-2 (PCR) NOT DETECTED PD Medical Decision Making - ED course Complexity details: reviewed results, re-evaluated patient, considered differential, d/w patient ED course: The patient was treated with IV fluids, Phenergan, Toradol, and Benadryl. On reevaluation patient was found to be feeling better and was stable for discharge home. Discussed home management of symptoms as well as the usual indications for return. Departure - Departure Disposition: 01 Home, Self Care Clinical Impression: Headache Qualifiers: Headache type: unspecified Headache chronicity pattern: acute headache Intractability: not intractable Qualified Code(s): R51.9 - Headache, unspecified Condition: Stable Instructions: ED Cephalgia Unspecified Prescriptions: HYDROcod/ACETAM 5/325 [[place] 5/325] 1 - 2 tablet PO Q6H PRN #7 tablet PRN Reason: Pain Ondansetron Odt [Zofran] 4 mg TL Q6H PRN #10 tablet PRN Reason: Nausea / Vomiting Comments: You have been treated in the emergency department today for dehydration and your headache. At this point in time, there is no evidence of a more emergent cause of your headache and you are already on antibiotics for sinus infection. It is not unusual for illness to trigger tension and migraine headaches and this may be part of the issue for you. Most likely, this will ultimately blow over on its own. There is no evidence of a more serious condition, such as bleeding in your brain or tumor. This is also at this point not consistent with meningitis as symptoms have been ongoing and you do not have other features indicative of meningitis. Please follow-up with your primary doctor as needed. Continue to drink plenty of fluids. Prescriptions for nausea and pain medication have been electronically transmitted to the [facility] pharmacy in [place]. Forms: PCP List Discharge Date/Time: 03/17/24 12:03
[2024-03-17] MEDS: SODIUM CHLORIDE 0.9% 1,000 ML IV STA (09:05)
[2024-03-17] MEDS: KETOROLAC 30 MG/ML VIAL IVP STA (09:06)
[2024-03-17] MEDS: diphenhydrAMINE INJ 50 MG/ML VIAL IVP STA (09:06)
[2024-03-17 09:35] LABS: CORONAVIRUS 229E-RESP PCR NOT DETECTED; CORONAVIRUS HKU1-RESP PCR NOT DETECTED; CORONAVIRUS NL63-RESP PCR NOT DETECTED; CORONAVIRUS OC43-RESP PCR NOT DETECTED; SARS-CoV-2 -RESP PCR PANEL NOT DETECTED
[2024-03-17 09:36] LABS: B. PARAPERTUSSIS- RESP PCR PAN NOT DETECTED; B. PERTUSSIS- RESP PCR PANEL NOT DETECTED; C. PNEUMONIAE- RESP PCR PANEL NOT DETECTED; HUMAN METAPNEUMOVIRUS NOT DETECTED; INFLUENZA A- RESP PCR PANEL NOT DETECTED; INFLUENZA B - RESP PCR PANEL NOT DETECTED; M. PNEUMONIAE- RESP PCR PANEL NOT DETECTED; PARAINFLUENZA VIRUS 1 NOT DETECTED; PARAINFLUENZA VIRUS 2 NOT DETECTED; PARAINFLUENZA VIRUS 3 NOT DETECTED; PARAINFLUENZA VIRUS 4 NOT DETECTED; RHINOVIRUS/ENTEROVIRUS DETECTED; RSV- RESP PCR PANEL NOT DETECTED
[2024-03-17] MEDS: PROMETHAZINE INJ 25 MG in SODIUM CHLORIDE 0.9% 50 ML IV PRN (10:00)
[2024-03-17] MEDS: HYDROmorphone 1 MG/ML CARPUJECT IVP STA (11:34)
[2024-03-17 12:05] VITALS: BP 107/72; O2SAT 99
== END 2024-03-17 12:03 | disposition home or self-care (01) ==
LOC: ED 07:55
DX: R51.9 Headache, unspecified (principal)
CPT/HCPCS: 87633; 96365; 96375; 99283; 99285; J1170; J1200; J7040